=== PATIENT | female | born 1960 | race American Indian/Alaskan Native ===

== ENCOUNTER 2016-08-23 08:44 | Outpatient (CLI) | payer BC ==
[2016-08-23 10:48] LABS: Blood Urea Nitrogen 28 mg/dL (7-17)
[2016-08-23] MEDS ORDERED: NACL ONE (10:52)
--- NOTE | 2016-08-23 13:58 | Cat Scan Report ---
CT NECK WITH CONTRAST: HISTORY: Lymphocytosis. TECHNIQUE: Helical CT following IV contrast. Sagittal and coronal reformatted images. FINDINGS: There are a few scattered benign-appearing lymph nodes on both sides of the neck. The largest lymph nodes measure up to 1.3 cm in long axis in the jugular chains. No bulky adenopathy or necrotic lymph nodes. The parotid and submandibular glands are normal. The carotid sheaths are intact. The glottic structures are normal. The airway is patent. Strap musculature is unremarkable. Hyoid bone and thyroid cartilage are intact. IMPRESSION: Essentially unremarkable CT of the neck. A few scattered benign-appearing or reactive lymph nodes are noted in the jugular chains. No bulky adenopathy or mass.
--- NOTE | 2016-08-23 14:04 | Cat Scan Report ---
CT CHEST WITH CONTRAST: HISTORY: Lymphocytosis. TECHNIQUE: Helical CT following IV contrast. Sagittal and coronal reformatted images. FINDINGS: Heart size is normal. There is no evidence of adenopathy within the mediastinum. Pulmonary rosalind are free of any mass and the lungs are clear of infiltrates. The pleura is unremarkable. No masses involve the chest wall. There are scattered benign appearing lymph nodes in the mediastinum and bilateral axillary chains measuring up to 1.2 cm. No suspicious or bulky adenopathy. IMPRESSION: Unremarkable CT scan of the chest.
--- NOTE | 2016-08-23 14:07 | Cat Scan Report ---
CT SCAN OF THE ABDOMEN AND PELVIS WITH CONTRAST: HISTORY: Lymphocytosis. TECHNIQUE: Helical CT in 1.25mm intervals following IV contrast. Sagittal and coronal reconstructions. FINDINGS: The liver is normal in size and is without focal defect. No gallstones or biliary dilatation are noted. Normal pancreas. There is borderline to mild splenomegaly measuring 14.3 x 6.2 x 9.0 cm. No focal splenic lesion. The kidneys are normal in size and position with no evidence of hydronephrosis or mass. The adrenal glands are normal. There is no intestinal obstruction or ascites. Normal appendix. The abdominal aorta is normal. Hysterectomy changes are evident. I believe I see the ovaries which are unremarkable. There is no evidence of peritoneal air or fluid. There is no evidence of any abnormal masses or fluid collections within the pelvis. No adenopathy is identified. The bladder is normal. IMPRESSION: Borderline to mild splenomegaly. No pathologic adenopathy is appreciated. Otherwise, unremarkable exam of the abdomen and pelvis.
== END 2016-08-23 08:45 | disposition home or self-care (01) ==
LOC: CT 08:44
PROVIDERS: ATTEND Internal Medicine Hematology & Oncology
DX: C91.Z0 Other lymphoid leukemia not having achieved remission (principal); Z90.710 Acquired absence of both cervix and uterus
CPT/HCPCS: 36415; 70491; 71260; 74177; 82565; 84520; Q9967

== ENCOUNTER 2017-01-05 13:46 | Outpatient (CLI) | payer BC ==
[2017-01-05 14:09] LABS: Hematocrit 33.7 % (30.3-42.9); Hemoglobin 10.7 gm/dl (10.1-14.3); Mean Corpuscular HGB Conc 32 % (30-34); Mean Corpuscular Hemoglobin 28 pg (28-32); Mean Corpuscular Volume 86 fl (79-97); Platelet Count 252 K/mm3 (140-440); Red Cell Distribution Width 13.7 % (13.2-15.2)
[2017-01-05 14:15] LABS: White Blood Count 25.2 K/mm3 (4.5-11.0)
[2017-01-05 14:28] LABS: Alanine Aminotransferase 16 units/L (7-56); Albumin 4.5 g/dL (3.9-5); Albumin/Globulin Ratio 1.5 %; Alkaline Phosphatase 91 units/L (35-129); Anion Gap 18 mmol/L; BUN/Creatinine Ratio 32.85; Blood Urea Nitrogen 23 mg/dL (7-17); Calcium 9.5 mg/dL (8.4-10.2); Carbon Dioxide 25 mmol/L (22-30); Chloride 103.7 mmol/L (98-107); Cholesterol 186 mg/dL (50-199); Glucose 83 mg/dL (65-100); HDL Cholesterol 48 mg/dL (40-59); LDL Cholesterol,Direct 120 mg/dL (50-130); Sodium 143 mmol/L (137-145); Total Protein 7.5 g/dL (6.3-8.2); Triglycerides 92 mg/dL (2-149)
== END 2017-01-05 13:47 | disposition home or self-care (01) ==
LOC: LAB 13:46
PROVIDERS: ATTEND Internal Medicine
DX: I10 Essential (primary) hypertension (principal); D72.829 Elevated white blood cell count, unspecified; E78.00 Pure hypercholesterolemia, unspecified; D64.9 Anemia, unspecified
CPT/HCPCS: 36415; 80053; 80061; 85027

== ENCOUNTER 2017-02-21 11:39 | Outpatient (CLI) | payer BC ==
--- NOTE | 2017-02-21 14:36 | Mammography Report ---
BILATERAL MAMMOGRAM: FINDINGS: There are scattered fibroglandular densities (approximately 25%-50% glandular). No mass, distortion, suspicious calcification, or skin change is seen. Change compared to prior study in 2010. CAD was utilized. IMPRESSION: Negative mammogram. There is no mammographic evidence of malignancy. RECOMMENDATION: Follow-up per ACS guidelines. BI-RADS CATEGORY: 1 = Negative ACR BI-RADS MAMMOGRAPHIC CODES: 0 = Needs additional imaging evaluation; 1 = Negative; 2 = Benign; 3 = Probably benign; 4 = Suspicious; 5 = Malignant; 6 = Known biopsy-proven malignancy COMMENT: 1. Dense breast tissue, i.e., adenosis, fibrocystic changes, etc., may obscure an underlying neoplasm. 2. Approximately 10% of cancers are not detected with mammography. 3. A negative mammography report should not delay biopsy if a clinically suspicious mass is present. COMMENT: Patient follow-up letters are generated in [employer].
== END 2017-02-21 11:40 | disposition home or self-care (01) ==
LOC: MAMMO 11:39
PROVIDERS: ATTEND Internal Medicine
DX: Z12.31 Encounter for screening mammogram for malignant neoplasm of breast (principal)
CPT/HCPCS: 77067; G0202

== ENCOUNTER 2017-07-21 09:07 | Outpatient (CLI) | payer BC ==
[2017-07-21 09:19] LABS: Hematocrit 33.8 % (30.3-42.9); Hemoglobin 10.9 gm/dl (10.1-14.3); Mean Corpuscular HGB Conc 32 % (30-34); Mean Corpuscular Hemoglobin 28 pg (28-32); Mean Corpuscular Volume 87 fl (79-97); Platelet Count 251 K/mm3 (140-440); Red Cell Distribution Width 13.5 % (13.2-15.2)
[2017-07-21 09:42] LABS: Alanine Aminotransferase 24 units/L (7-56); BUN/Creatinine Ratio 23; Blood Urea Nitrogen 18 mg/dL (7-17); Chol/HDL Ratio 3.43 %; HDL Cholesterol 46 mg/dL (40-59); Hemolysis Index 3; LDL Cholesterol,Direct 100 mg/dL (50-130)
[2017-07-21 10:17] LABS: Basophils % (Manual) 0 % (0.0-1.8); Total Cells Counted 100
[2017-07-21 10:18] LABS: Anisocytosis 1+; Burr Cells Rare; Ovalocytes Few; Stomatocytes Rare
== END 2017-07-21 09:08 | disposition home or self-care (01) ==
LOC: LAB 09:07
PROVIDERS: ATTEND Internal Medicine
DX: I10 Essential (primary) hypertension (principal); E78.2 Mixed hyperlipidemia
CPT/HCPCS: 36415; 80053; 80061; 85007; 85025

== ENCOUNTER 2017-10-10 07:59 | Emergency (ER) | payer BC, OTHER ==
[2017-10-10 08:06] VITALS: BP 148/57
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
== END 2017-10-10 09:27 | disposition home or self-care (01) ==
LOC: ED 07:59
DX: S41.051A Open bite of right shoulder, initial encounter (principal); Z88.8 Allergy status to other drugs, medicaments and biological substances; W50.3XXA Accidental bite by another person, initial encounter; Y93.89 Activity, other specified; Y92.89 Other specified places as the place of occurrence of the external cause; Y99.8 Other external cause status
CPT/HCPCS: 99282

== ENCOUNTER 2018-06-12 08:09 | Outpatient (CLI) | payer BC ==
[2018-06-12 09:26] LABS: Hematocrit 33.1 % (30.3-42.9); Hemoglobin 10.4 gm/dl (10.1-14.3); Mean Corpuscular HGB Conc 31 % (30-34); Mean Corpuscular Volume 89 fl (79-97); Platelet Count 247 K/mm3 (140-440); Red Blood Count 3.74 M/mm3 (3.65-5.03); Red Cell Distribution Width 13.9 % (13.2-15.2)
[2018-06-12 12:02] LABS: Eosinophils % (Manual) 0 % (0.0-4.3); Platelet Estimate Consistent w Auto; RBC Morphology Normal; Total Cells Counted 100
--- NOTE | 2018-06-12 12:24 | Ultrasound Report ---
ULTRASOUND ABDOMEN COMPLETE: TECHNIQUE: Transabdominal ultrasound with color Doppler interrogation. HISTORY: Chronic lymphoma leukemia. COMPARISON: CT abdomen pelvis with contrast dated 08/23/16. FINDINGS: LIVER: Within normal limits. No focal liver mass. BILIARY SYSTEM: Trace sludge is identified in the gallbladder. No shadowing gallstones, abnormal dilatation or wall thickening. The CBD measures 3.6 mm. PANCREAS: Partially obscured. No gross abnormality. SPLEEN: Borderline to mild splenomegaly is identified measuring 13.9 x 4.9 x 4.6 cm. No focal splenic lesion is detected. KIDNEYS: Normal. AORTA/IVC: Normal. ASCITES: None. IMPRESSION: Trace sludge in the gallbladder. Borderline to mild splenomegaly. No visceral mass, adenopathy or fluid is identified.
--- NOTE | 2018-06-12 12:42 | Mammography Report ---
BILATERAL DIGITAL SCREENING MAMMOGRAM with CAD: 06/12/18 08:09:00 CLINICAL: Routine screening. COMPARISON:02/21/17 FINDINGS: There are scattered areas of fibroglandular density.Stable right calcifications with benign morphology. No mass, architectural distortion or suspicious calcifications. IMPRESSION: No mammographic evidence of malignancy. BI-RADS CATEGORY: 2 -- Benign RECOMMENDATION: Routine mammographic screening in one year. COMMENT: Patient follow-up letters are generated by our [employer] application.
== END 2018-06-12 08:10 | disposition home or self-care (01) ==
LOC: EDBD → US 08:09
PROVIDERS: ATTEND Internal Medicine Hematology & Oncology
DX: Z12.31 Encounter for screening mammogram for malignant neoplasm of breast (principal); C91.10 Chronic lymphocytic leukemia of B-cell type not having achieved remission; I10 Essential (primary) hypertension; E78.00 Pure hypercholesterolemia, unspecified; M19.90 Unspecified osteoarthritis, unspecified site; Z90.710 Acquired absence of both cervix and uterus
CPT/HCPCS: 36415; 76700; 77067; 85007; 85025; 88184; 88185

== ENCOUNTER 2018-07-02 09:22 | Outpatient (CLI) | payer BC ==
--- NOTE | 2018-07-02 10:44 | XRay Report ---
LEFT KNEE RADIOGRAPHS INDICATION: Left knee pain. COMPARISON: 03/18/2014. FINDINGS: AP, lateral and oblique left knee radiographs demonstrate interval knee replacement with intact articulation. No evidence of loosening. No large suprapatellar effusion. Possible osteopenia. CONCLUSION: Interval left knee replacement since March 2014 without acute radiographic abnormality, as described. Please correlate. Thank you for the opportunity to participate in this patient's care.
== END 2018-07-02 09:23 | disposition home or self-care (01) ==
LOC: EDBD → XRAY 09:22
PROVIDERS: ATTEND Orthopaedic Surgery
DX: M25.562 Pain in left knee (principal); E78.00 Pure hypercholesterolemia, unspecified; I10 Essential (primary) hypertension; M19.90 Unspecified osteoarthritis, unspecified site; Z90.710 Acquired absence of both cervix and uterus; Z96.652 Presence of left artificial knee joint

== ENCOUNTER 2018-07-23 08:05 | Outpatient (CLI) | payer BC ==
--- NOTE | 2018-07-23 13:33 | Nuclear Medicine Report ---
NUCLEAR MEDICINE BONE SCAN INFECTION 3 PHASE HISTORY: Left knee pain since left knee replacement in 11/19. COMPARISON: Left knee films dated 07/02/18. FINDINGS: 25 mCi of technetium 99m was administered intravenously. The perfusion images of both knees demonstrates symmetric perfusion to both knee regions. No focal hyperemia is appreciated. The blood pool images demonstrate mild retention of the radiotracer in the left knee particularly surrounding the tibial component. The delayed images demonstrate increased uptake of the radiotracer surrounding the left knee prosthesis, again, particularly the tibial component. There is also moderate degenerative uptake in the right knee and right ankle. IMPRESSION: There is increased accumulation of the radiotracer surrounding the tibial component of the left knee prosthesis which is concerning for loosening or traumatic injury. No evidence for infection.
== END 2018-07-23 08:06 | disposition home or self-care (01) ==
LOC: NM 08:05
PROVIDERS: ATTEND Orthopaedic Surgery
DX: M25.562 Pain in left knee (principal); E78.00 Pure hypercholesterolemia, unspecified; I10 Essential (primary) hypertension; M19.90 Unspecified osteoarthritis, unspecified site; Z96.652 Presence of left artificial knee joint; Z90.710 Acquired absence of both cervix and uterus
CPT/HCPCS: 78315; A9503

== ENCOUNTER 2018-08-15 13:06 | Outpatient (CLI) | payer BC ==
--- NOTE | 2018-08-15 13:40 | XRay Report ---
RIGHT ANKLE, 3 views: History: right ankle pain. Borderline bone mineralization. Moderate osteoarthritic changes are identified at the tibiotalar joint and subtalar joint and mid foot. There is no evidence for fracture or suspicious bone lesion. Moderate to large plantar spur is identified. There is mild diffuse soft tissue swelling or edema. IMPRESSION: Moderate osteoarthritic changes. No acute process noted.
== END 2018-08-15 13:07 | disposition home or self-care (01) ==
LOC: XRAY 13:06
PROVIDERS: ATTEND Orthopaedic Surgery
DX: M19.071 Primary osteoarthritis, right ankle and foot (principal); M77.8 Other enthesopathies, not elsewhere classified; M19.90 Unspecified osteoarthritis, unspecified site; I10 Essential (primary) hypertension; Z86.2 Personal history of diseases of the blood and blood-forming organs and certain disorders involving the immune mechanism; Z90.710 Acquired absence of both cervix and uterus

== ENCOUNTER 2018-09-27 07:22 | Inpatient (IN) | payer BC ==
[2018-09-25 09:36] LABS: Hematocrit 35.1 % (30.3-42.9); Hemoglobin 10.9 gm/dl (10.1-14.3); Mean Corpuscular HGB Conc 31 % (30-34); Mean Corpuscular Volume 89 fl (79-97); Platelet Count 231 K/mm3 (140-440); Red Blood Count 3.93 M/mm3 (3.65-5.03); Red Cell Distribution Width 13.8 % (13.2-15.2)
--- NOTE | 2018-09-25 09:58 | Anesthesia Consultation ---
Anesthesia Consult and Med Hx Date of service: 09/27/18 - Airway Anesthetic Teeth Evaluation: Poor, Chipped ROM Head & Neck: Adequate Mental/Hyoid Distance: Adequate Mallampati Class: Class II Intubation Access Assessment: Probably Good - Pre-Operative Health Status ASA Pre-Surgery Classification: ASA3 Proposed Anesthetic Plan: General (SAB; GA backup if needed), Spinal Nerve Block: Adductor Canal - Pulmonary Hx Smoking: No Hx Sleep Apnea: No (CHARO PRE SCREEN HIGH RISK.) - Cardiovascular System Hx Hypertension: Yes (X 5 YRS. Occasionally HYPOtensive so takes meds accordingly) - Central Nervous System Hx Psychiatric Problems: No - Hematic Hx Anemia: Yes - Other Systems Hx Cancer: Yes (CLL)
[2018-09-25 10:03] LABS: Alanine Aminotransferase 28 units/L (7-56); Albumin 4.7 g/dL (3.9-5); BUN/Creatinine Ratio 28; Blood Urea Nitrogen 25 mg/dL (7-17); Calcium 9.8 mg/dL (8.4-10.2); Hemolysis Index 12
[2018-09-25 13:00] LABS: Basophils % (Manual) 0 % (0.0-1.8); Eosinophils % (Manual) 0 % (0.0-4.3); Total Cells Counted 100
[2018-09-25 13:03] LABS: Anisocytosis 1+; Platelet Estimate Consistent w Auto
[~2018-09-27 07:22] MED LIST: ANCEF/STERILE WATER 2 GM/20 ML IV NR; MARCAINE 0.5% INFILTRATI ONE; MORPHINE IM ONE; NACL 0.9% 250ML IV ONE; TORADOL IM ONE
[2018-09-27] MEDS ORDERED: NEURONTIN PO NR (07:29)
[2018-09-27] MEDS ORDERED: DECADRON IV NR (07:30)
[2018-09-27] MEDS ORDERED: DECADRON ONE (07:36)
[2018-09-27] MEDS ORDERED: ZOFRAN ONE (07:36)
[2018-09-27] MEDS ORDERED: XYLOCAINE MPF 2% ONE (07:36)
[2018-09-27] MEDS ORDERED: DIPRIVAN 10 MG/ML IV ONE (07:37)
[2018-09-27] MEDS ORDERED: DILAUDID ONE ×2 (07:37→12:35)
[2018-09-27] MEDS ORDERED: TORADOL ONE ×2 (07:49→12:38)
[2018-09-27] MEDS ORDERED: MARCAINE 0.5% INFILTRATI ONE ×3 (07:49→11:05)
[2018-09-27] MEDS ORDERED: TRANEXAMIC ACID ONE (07:49)
[2018-09-27] MEDS ORDERED: NACL 0.9% 250ML 250 ML ONE (07:50)
[2018-09-27] MEDS ORDERED: MORPHINE ONE (07:50)
[2018-09-27] MEDS ORDERED: NACL 0.9% 100 ML ONE (07:50)
[2018-09-27] MEDS ORDERED: LACTATED RINGERS 1,000 ML ONE (07:54)
[2018-09-27] MEDS ORDERED: MARCAINE-EPI 0.5%-1:200,000 INFILTRATI ONE (08:00)
[2018-09-27] MEDS ORDERED: VERSED IV NR (08:00)
[2018-09-27] MEDS ORDERED: PEPCID ONE (08:03)
[2018-09-27] MEDS ORDERED: SUBLIMAZE ONE (08:35)
[2018-09-27] MEDS ORDERED: VERSED ONE (08:35)
[2018-09-27] MEDS ORDERED: TRANEXAMIC ACID IV ONE (08:54)
[2018-09-27] MEDS ORDERED: NACL 0.9% 250ML IV ONE (11:05)
[2018-09-27] MEDS ORDERED: MORPHINE IM ONE (11:05)
[2018-09-27] MEDS ORDERED: TORADOL IM ONE (11:05)
[2018-09-27] MEDS ORDERED: ZOFRAN IV PRN (11:21)
--- NOTE | 2018-09-27 11:28 | Procedure Note ---
Date of procedure: 09/27/18 Pre-op diagnosis: aseptic loosening left tibial component status post total knee replacement Post-op diagnosis: same Procedure: Revision left total knee replacement Procedure The patient was brought to the OR after being given a femoral nerve block in preop holding Patient was placed onto the OR table in the supine position following induction with Mac anesthesia the patient's left lower extremity was prepped and draped in the usual sterile manner. A timeout procedure was done to identify the patient and the correct operative site. Leg was exsanguinated followed by inflation of the pneumatic tourniquet to 300 mmHg. Utilizing the previous incision which was midline this and incisions were taken down through skin and subcutaneous the superior and inferior portions of the previous scar was lengthened to expose more soft tissue after incising the skin and subcutaneous tissues the quadriceps tendon patella and patellar tendons were identified using a medial parapatellar incision the the knee was then brought into flexion which exposed the left knee upon visual inspection patient was noted to have abundant scar tissue which was carefully debrided The tibial implant was seen and appeared to be somewhat loose using a combination of osteotomes the bony overgrowth were removed The patella osteotomy the polyethylene insert was removed and the knee was then placed in 90 of flexion using retractors posteriorly we were able to slowly remove the tibial implant which again appeared loose but with no outward evidence of infection the femoral component was also evaluated and appeared to be in a stable firm condition after removal of the tibial component and intramedullary isabel was inserted into the proximal tibia this was then reamed to a 19 mm diameter next the proximal tibial resection guide was placed and approximately 7 or 8 mm of proximal tibia was resected off of the lateral tibial plateau with the intramedullary isabel in place a 71 mm tibial tray with medial and lateral buildup was used to size the flexion and extension gaps 15 mm medial and lateral buildup along with a 18 mm polyethylene insert was chosen systems gave good stability in both flexion and extension and allowed for full range of motion The trial components were removed the wound was then copiously irrigated using pulse lavage next the final components were assembled and was inserted using E cement technique beginning with the tibial cut tibial tray which measured 80 mm length by 19 mm in diameter with a 71 mm tibial tray along with again a 1515 mm medial and lateral as well as a 18 mm polyethylene insert following hardening of cement the knee was taken through a range of motion and was found to be stable next the soft tissues beginning with the medial patellar retinaculum was repaired followed by closure of the deep subcutaneous and superficial skin was closed with a zip line suture device pressure dressings were applied patient tolerated procedure and complications she was sent to postanesthesia recovery in stable condition Anesthesia: MAC, regional Surgeon: CECILIA CUMMINGS [employer] Specialist: ALICE MILLER Estimated blood loss: minimal Pathology: list (wound culture left knee) Condition: stable Disposition: PACU
[2018-09-27] MEDS ORDERED: SODIUM CHLORIDE FLUSH SYRINGE 10 ML IV NR (12:00)
[2018-09-27] MEDS ORDERED: TORADOL IV ONE (12:38)
[2018-09-27] MEDS ORDERED: DILAUDID IV PRN (12:39)
[2018-09-27] MEDS: ANCEF/NS 1 GM/50 ML 1 GM/50 ML BAG IV SCH (21:00)
[2018-09-27] MEDS: PERCOCET 5/325 PO PRN (21:58)
[2018-09-28] MEDS: MORPHINE IV PRN ×3 (02:45→16:48)
[2018-09-28] MEDS: ANCEF/NS 1 GM/50 ML 1 GM/50 ML BAG IV SCH (02:47)
[2018-09-28 06:34] LABS: Hemoglobin 8.8 gm/dl (10.1-14.3)
[2018-09-28] MEDS: PERCOCET 5/325 PO PRN ×3 (06:51→21:01)
[2018-09-28] MEDS: LOVENOX SUB-Q SCH (09:52)
--- NOTE | 2018-09-28 16:17 | Progress Note ---
Assessment and Plan s/p revision left total knee replacement doing ok continue PT and observation Subjective Date of service: 09/28/18 Interval history: c/o right hand numbness, otherwise ok Objective Vital signs: Vital Signs - 12hr 09/28/18 09/28/18 09/28/18 04:36 04:40 08:17 Temperature 98.1 F 99.7 F H Pulse Rate 61 66 75 Respiratory 18 18 Rate Blood Pressure 108/60 98/46 Blood Pressure 108/60 [Left] O2 Sat by Pulse 100 100 97 Oximetry 09/28/18 09/28/18 09/28/18 08:18 08:36 12:13 Temperature Pulse Rate 77 73 Respiratory Rate Blood Pressure Blood Pressure [Left] O2 Sat by Pulse 97 98 100 Oximetry 09/28/18 12:15 Temperature 99.8 F H Pulse Rate 74 Respiratory 18 Rate Blood Pressure Blood Pressure 100/48 [Left] O2 Sat by Pulse 2 L Oximetry Narrative Exam: left knee - post op dressing removed and wound inspected, no redness/erythema noted, moderate bloody drainage, compartment soft, negative Jose M's, good capillary refill - Labs CBC & BMP: 09/28/18 06:24 09/25/18 09:00 Labs: Abnormal lab results 09/27/18 09/28/18 Range/Units 21:58 06:24 Hgb 8.8 L (10.1-14.3) gm/dl Hct 28.0 L D (30.3-42.9) % POC Glucose 161 H (70-105)
--- NOTE | 2018-09-28 22:35 | Consultation ---
History of Present Illness - Reason for Consult Consult date: 09/28/18 medical management Requesting physician: CECILIA CUMMINGS - History of Present Illness s/p revision left total knee replacement. Was asked to see the patient in consultation for right hand numbness. Right hand numbness has been going off and on for the last 1 week. No weakness in the hand. Full range of motion. No other medical problems. Past History Past Medical History: arthritis, hypertension, hyperlipidemia Past Surgical History: Other (left knee surgery) Social history: no significant social history, full code Family history: no significant family history Medications and Allergies Allergies Allergy/AdvReac Type Severity Reaction Status Date / Time Tetanus Vaccines and Toxoid Allergy ANEMIA Verified 11/22/16 10:13 [Tetanus Vaccines & Toxoid] Home Medications Medication Instructions Recorded Confirmed Last Taken Type Aspirin [Adult Low Dose Aspirin EC] 81 mg PO DAILY 07/01/16 09/19/18 11/21/16 History Atenolol/Chlorthalidone [Tenoretic 1 tab PO QDAY 07/01/16 09/27/18 09/26/18 History 50-25] AtorvaSTATin [Lipitor] 20 mg PO DAILY 07/01/16 09/27/18 09/26/18 History Ibuprofen [Motrin 800 MG tab] 800 mg PO PRN PRN 07/01/16 09/19/18 11/20/16 History Active Meds: Active Medications Enoxaparin Sodium (Lovenox) 40 mg SUB-Q QDAY KING Last Admin: 09/28/18 09:52 Dose: 40 mg Documented by: Hydromorphone HCl (Dilaudid) 0.5 mg IV Q10MIN PRN PRN Reason: Pain , Severe (7-10) Ibuprofen (Motrin) 600 mg PO Q6H PRN PRN Reason: Pain, Mild (1-3) Morphine Sulfate (Morphine) 4 mg IV Q4H PRN PRN Reason: Pain , Severe (7-10) Last Admin: 09/28/18 16:48 Dose: 4 mg Documented by: Ondansetron HCl (Zofran) 4 mg IV Q8H PRN PRN Reason: Nausea And Vomiting Oxycodone/Acetaminophen (Percocet 5/325) 1 tab PO Q6H PRN PRN Reason: Pain, Moderate (4-6) Last Admin: 09/28/18 21:01 Dose: 1 tab Documented by: Review of Systems All systems: negative Neurological: parathesias (right upper extremity) Exam - Constitutional Vitals: Temp Pulse Resp BP Pulse Ox 99.2 F 85 18 111/54 100 09/28/18 20:06 09/28/18 20:06 09/28/18 22:01 09/28/18 20:06 09/28/18 20:06 General appearance: Present: no acute distress, well-nourished - EENT Eyes: Present: PERRL ENT: hearing intact, clear oral mucosa - Neck Neck: Present: supple, normal ROM - Respiratory Respiratory effort: normal Respiratory: bilateral: CTA - Cardiovascular Heart rate: 70 Rhythm: regular Heart Sounds: Present: S1 & S2. Absent: rub, click - Extremities Extremities: no ischemia, pulses intact, pulses symmetrical, No edema Peripheral Pulses: within normal limits - Abdominal General gastrointestinal: Present: soft, non-tender, non-distended, normal bowel sounds Female genitourinary: Present: normal - Rectal Rectal Exam: deferred - Integumentary Integumentary: Present: clear, warm, dry - Musculoskeletal Musculoskeletal: gait normal, strength equal bilaterally - Psychiatric Psychiatric: appropriate mood/affect, intact judgment & insight - Neurologic Neurologic: CNII-XII intact, moves all extremities - Allied Health Allied health notes reviewed: nursing, case management Results - Labs CBC & Chem 7: 09/28/18 06:24 09/25/18 09:00 Labs: Abnormal lab results 09/28/18 Range/Units 06:24 Hgb 8.8 L (10.1-14.3) gm/dl Hct 28.0 L D (30.3-42.9) % Assessment and Plan - Patient Problems (1) History of total left knee replacement Current Visit: No Status: Acute Plan to address problem: Revision of total knee replacement-left Postop doing well (2) Numbness of right hand Current Visit: Yes Status: Acute Plan to address problem: Probably secondary to cervical degenerative joint disease We'll get CT of the C-spine Symptomatic treatment (3) Hypertension Current Visit: Yes Status: Chronic Qualifiers: Hypertension type: essential hypertension Qualified Code(s): I10 - Essential (primary) hypertension Plan to address problem: Continue antihypertensives (4) Hyperlipidemia Current Visit: Yes Status: Chronic Qualifiers: Hyperlipidemia type: unspecified Qualified Code(s): E78.5 - Hyperlipidemia, unspecified Plan to address problem: Continue statins (5) DVT prophylaxis Current Visit: Yes Status: Acute Plan to address problem: On SCDs and GI prophylaxis
[2018-09-29] MEDS: MORPHINE IV PRN ×3 (00:55→15:20)
[2018-09-29] MEDS: PERCOCET 5/325 PO PRN ×2 (04:25→10:30)
[2018-09-29] MEDS: LOVENOX SUB-Q SCH ×2 (08:37→10:00)
[2018-09-29] MEDS ORDERED: DULCOLAX PR ONE ×2 (09:28→15:00)
[2018-09-29] MEDS ORDERED: NON-FORMULARY (Atenolol/Chlorthalidone [Tenoretic 50-25] 1 TAB) PO SCH (10:00)
[2018-09-29] MEDS: HALFPRIN EC PO SCH (11:20)
--- NOTE | 2018-09-29 12:37 | Progress Note ---
Assessment and Plan Assessment and plan: Patient is a 57 yo woman with a history of OA, hypertension, dyslipidemia, anemia and CML followed by Dr. Marinelli who presented to [facility] surgical center for Left knee pain requiring TKR by Dr. Rodney on 09/27/18. Hospitalist were consulted on 09/28/18 to evaluated right hand numbness, tingling on all right f ingertips that developed after surgery. She is actually a patient of Dr. Ramirez, who I called. He provided the history of CML and Dr. Marinelli. He will take over care tomorrow, Monday. I have informed him take patient spiked a fever of 100.8 today and I am ordering blood cultures. -Left knee pains s/p Left TKR on 09/27/18: Dr. Rodney is following -Right finger paresthesia: CT neck ordered yesterday and still pending -Elevated temperature: follow blood culture, ua, pCXR -Drop in HCT, acute on chronic anemia: repeat CBC -Suspected history of CML with wBC in the 50s: consult Dr. Marinelli. -DVT prophylaxis per Dr. Rodney Follow up CXR, blood culture, ua, cbc, CT neck History Interval history: Patient was seen and examined. Follow-up on current diagnosis or right fingertip tingling. Overnight uneventful. Patient denies any chest pain, shortness breath, nausea/vomiting or severe headaches. Imaging, nursing note, chart, labs and old chart reviewed. Discussed with patient. Hospitalist Physical - Physical exam Narrative exam: Gen: WDWN, NAD, Awake, Alert, Orientated HEENT: NCAT, EOMI, PERRL, OP Clear Neck: supple, no adenopathy, no thyromegaly, no JVD CVS/Heart: RRR, normal S1S2, pulses present bilaterally Chest/Lungs: CTA B, Symmetrical chest expansion, good air entry bilaterally GI/Abdomen: soft, NTND, good bowel sounds, no guarding or rebound /Bladder: no suprapubic tenderness, no CVA or paraspinal tenderness Extermity/Skin: no c/c/e, no obvious rash MSK: FROM x 3, lrom left knee Neuro: CN 2-12 grossly intact, no new focal deficits, no right hand motor deficits Psych: calm - Constitutional Vitals: Temp Pulse Resp BP Pulse Ox 100.8 F H 94 H 18 102/48 96 09/29/18 08:18 09/29/18 08:18 09/29/18 10:31 09/29/18 08:18 09/29/18 10:31 General appearance: Present: no acute distress, well-nourished Results - Labs CBC & Chem 7: 09/28/18 06:24 09/25/18 09:00 Labs: Laboratory Last Values WBC 59.7 K/mm3 (4.5-11.0) H* 09/25/18 09:00 RBC 3.93 M/mm3 (3.65-5.03) 09/25/18 09:00 Hgb 8.8 gm/dl (10.1-14.3) L 09/28/18 06:24 Hct 28.0 % (30.3-42.9) L D 09/28/18 06:24 MCV 89 fl (79-97) 09/25/18 09:00 MCH 28 pg (28-32) 09/25/18 09:00 MCHC 31 % (30-34) 09/25/18 09:00 RDW 13.8 % (13.2-15.2) 09/25/18 09:00 Plt Count 231 K/mm3 (140-440) 09/25/18 09:00 Add Manual Diff 09/25/18 09:00 Total Counted 100 09/25/18 09:00 Seg Neuts % (Manual) 8.0 % (40.0-70.0) L 09/25/18 09:00 Band Neutrophils % 0 % 09/25/18 09:00 Lymphocytes % (Manual) 91.0 % (13.4-35.0) H 09/25/18 09:00 Reactive Lymphs % (Man) 0 % 09/25/18 09:00 Monocytes % (Manual) 1.0 % (0.0-7.3) 09/25/18 09:00 Eosinophils % (Manual) 0 % (0.0-4.3) 09/25/18 09:00 Basophils % (Manual) 0 % (0.0-1.8) 09/25/18 09:00 Metamyelocytes % 0 % 09/25/18 09:00 Myelocytes % 0 % 09/25/18 09:00 Promyelocytes % 0 % 09/25/18 09:00 Blast Cells % 0 % 09/25/18 09:00 Nucleated RBC % Not Reportable 09/25/18 09:00 Seg Neutrophils # Man 4.8 K/mm3 (1.8-7.7) 09/25/18 09:00 Band Neutrophils # 0.0 K/mm3 09/25/18 09:00 Lymphocytes # (Manual) 54.3 K/mm3 (1.2-5.4) H 09/25/18 09:00 Abs React Lymphs (Man) 0.0 K/mm3 09/25/18 09:00 Monocytes # (Manual) 0.6 K/mm3 (0.0-0.8) 09/25/18 09:00 Eosinophils # (Manual) 0.0 K/mm3 (0.0-0.4) 09/25/18 09:00 Basophils # (Manual) 0.0 K/mm3 (0.0-0.1) 09/25/18 09:00 Metamyelocytes # 0.0 K/mm3 09/25/18 09:00 Myelocytes # 0.0 K/mm3 09/25/18 09:00 Promyelocytes # 0.0 K/mm3 09/25/18 09:00 Blast Cells # 0.0 K/mm3 09/25/18 09:00 Pathologist Review 09/25/18 09:00 WBC Morphology Not Reportable 09/25/18 09:00 Hypersegmented Neuts Not Reportable 09/25/18 09:00 Hyposegmented Neuts Not Reportable 09/25/18 09:00 Hypogranular Neuts Not Reportable 09/25/18 09:00 Smudge Cells Not Reportable 09/25/18 09:00 Toxic Granulation Not Reportable 09/25/18 09:00 Toxic Vacuolation Not Reportable 09/25/18 09:00 Dohle Bodies Not Reportable 09/25/18 09:00 Pelger-Huet Anomaly Not Reportable 09/25/18 09:00 Bebe Rods Not Reportable 09/25/18 09:00 Platelet Estimate Consistent w auto 09/25/18 09:00 Clumped Platelets Not Reportable 09/25/18 09:00 Plt Clumps, EDTA Not Reportable 09/25/18 09:00 Large Platelets Not Reportable 09/25/18 09:00 Giant Platelets Not Reportable 09/25/18 09:00 Platelet Satelliting Not Reportable 09/25/18 09:00 Plt Morphology Comment Not Reportable 09/25/18 09:00 RBC Morphology Not Reportable 09/25/18 09:00 Dimorphic RBCs Not Reportable 09/25/18 09:00 Polychromasia Not Reportable 09/25/18 09:00 Hypochromasia Not Reportable 09/25/18 09:00 Poikilocytosis Not Reportable 09/25/18 09:00 Anisocytosis 1+ 09/25/18 09:00 Microcytosis Not Reportable 09/25/18 09:00 Macrocytosis Not Reportable 09/25/18 09:00 Spherocytes Not Reportable 09/25/18 09:00 Pappenheimer Bodies Not Reportable 09/25/18 09:00 Sickle Cells Not Reportable 09/25/18 09:00 Target Cells Not Reportable 09/25/18 09:00 Tear Drop Cells Not Reportable 09/25/18 09:00 Ovalocytes Not Reportable 09/25/18 09:00 Helmet Cells Not Reportable 09/25/18 09:00 [place] Bodies Not Reportable 09/25/18 09:00 [place] Rings Not Reportable 09/25/18 09:00 [place] Cells Not Reportable 09/25/18 09:00 Bite Cells Not Reportable 09/25/18 09:00 Crenated Cell Not Reportable 09/25/18 09:00 Elliptocytes Not Reportable 09/25/18 09:00 Acanthocytes (Spur) Not Reportable 09/25/18 09:00 Rouleaux Not Reportable 09/25/18 09:00 Hemoglobin C Crystals Not Reportable 09/25/18 09:00 Schistocytes Not Reportable 09/25/18 09:00 Malaria parasites Not Reportable 09/25/18 09:00 [place] Bodies Not Reportable 09/25/18 09:00 Hem Pathologist Commnt Sent to pathology 09/25/18 09:00 Sodium 142 mmol/L (137-145) 09/25/18 09:00 Potassium 3.9 mmol/L (3.6-5.0) 09/25/18 09:00 Chloride 101.3 mmol/L (98-107) 09/25/18 09:00 Carbon Dioxide 24 mmol/L (22-30) 09/25/18 09:00 Anion Gap 21 mmol/L 09/25/18 09:00 BUN 25 mg/dL (7-17) H 09/25/18 09:00 Creatinine 0.9 mg/dL (0.7-1.2) 09/25/18 09:00 Estimated GFR > 60 ml/min 09/25/18 09:00 BUN/Creatinine Ratio 28 % 09/25/18 09:00 Glucose 98 mg/dL (65-100) 09/25/18 09:00 POC Glucose 161 (70-105) H 09/27/18 21:58 Calcium 9.8 mg/dL (8.4-10.2) 09/25/18 09:00 Total Bilirubin 0.40 mg/dL (0.1-1.2) 09/25/18 09:00 AST 21 units/L (5-40) 09/25/18 09:00 ALT 28 units/L (7-56) 09/25/18 09:00 Alkaline Phosphatase 100 units/L (35-129) 09/25/18 09:00 Total Protein 7.8 g/dL (6.3-8.2) 09/25/18 09:00 Albumin 4.7 g/dL (3.9-5) 09/25/18 09:00 Albumin/Globulin Ratio 1.5 % 09/25/18 09:00 Active Medications - Current Medications Current Medications: Generic Name Dose Route Start Last Admin Trade Name Freq PRN Reason Stop Dose Admin Acetaminophen 650 mg 09/29/18 12:24 Tylenol PO Q6H PRN Non Cardiac Pain or Temp>100.5 Aspirin 81 mg 09/29/18 10:00 Halfprin Ec PO DAILY [facility] Atenolol 50 mg 09/29/18 10:00 Tenormin PO QDAY [facility] Atorvastatin Calcium 20 mg 09/29/18 10:00 Lipitor PO DAILY [facility] Chlorthalidone 25 mg 09/29/18 10:00 Thalitone PO QDAY [facility] Enoxaparin Sodium 40 mg 09/28/18 10:00 09/29/18 08:37 Lovenox SUB-Q 40 mg QDAY [facility] Administration Hydromorphone HCl 0.5 mg 09/27/18 12:39 Dilaudid IV Q10MIN PRN Pain , Severe (7-10) Ibuprofen 600 mg 09/27/18 11:21 Motrin PO Q6H PRN Pain, Mild (1-3) Morphine Sulfate 4 mg 09/27/18 11:21 09/29/18 07:37 Morphine IV 4 mg Q4H PRN Administration Pain , Severe (7-10) Ondansetron HCl 4 mg 09/27/18 11:21 Zofran IV Q8H PRN Nausea And Vomiting Oxycodone/Acetaminophen 1 tab 09/27/18 11:21 09/29/18 04:25 Percocet 5/325 PO 1 tab Q6H PRN Administration Pain, Moderate (4-6)
[2018-09-29 13:22] LABS: Hematocrit 29.7 % (30.3-42.9); Hemoglobin 9.6 gm/dl (10.1-14.3); Mean Corpuscular HGB Conc 32 % (30-34); Mean Corpuscular Volume 89 fl (79-97); Platelet Count 223 K/mm3 (140-440); Red Blood Count 3.33 M/mm3 (3.65-5.03); Red Cell Distribution Width 13.4 % (13.2-15.2)
--- NOTE | 2018-09-29 13:29 | Cat Scan Report ---
PROCEDURE: CT CERVICAL SPINE WO CON HISTORY: right hand numbness FINDINGS: Unenhanced CT of the cervical spine was performed and data was reformatted into sagittal an d coronal planes. These images demonstrate no fracture or malalignment of the cervical spine. The C1-C2 articulation is normally aligned. At C2-C3 there are no posterior disc abnormalities. There is no evidence of canal stenosis or signifi cant neural foraminal narrowing. At C3-C4 there are no posterior disc abnormalities. There is no evidence of canal stenosis or nerve r oot impingement. At C4-C5 there is a small posterior disc bulge. There is endplate remodeling which is primarily anter ior. There is no evidence of canal stenosis or nerve root impingement. At C5-C6 there is endplate remodeling which is primarily anterior. There is no evidence of canal sten osis or nerve root impingement. At C6-C7 there is endplate remodeling which again is primarily anterior. There is no evidence of ritesh l stenosis or significant neural foraminal narrowing. At C7-T1 there are no posterior disc abnormalities. There is loss of normal cervical lordosis which may be due to pain, muscle spasm or patient positioni ng for the examination The pulmonary apices appear clear. IMPRESSION: No fracture is seen in the cervical spine Endplate remodeling at C4-C5, C5-C6 and C6-C7 No evidence of canal stenosis or nerve root impingement This document is electronically signed by Alexandro Bermudez MD., September 29 2018 01:27:46 PM ET
--- NOTE | 2018-09-29 14:46 | XRay Report ---
PROCEDURE: XR CHEST 1V AP TECHNIQUE: Chest radiograph, AP view. HISTORY: fever COMPARISONS: None currently available. FINDINGS: Cardiac silhouette is within normal limits. There is no effusion. There is no pneumothorax. There is no consolidation. Prominent bilateral centra l pulmonary markings. Subtle perihilar airspace opacities. There are no suspicious osseous lesions. IMPRESSION: * Pulmonary findings may represent pneumonia (possibly viral), bronchitis, interstitial pneumonitis, or mild pulmonary vascular congestion. This document is electronically signed by Eliseo Trevino MD., September 29 2018 02:44:33 PM ET
[2018-09-29 16:12] LABS: Color,Urine Yellow (Yellow)
[2018-09-29 16:13] LABS: Bilirubin,Urine NEG (Negative); Blood,Urine SM (Negative); Protein,Urine <15 mg/dL mg/dL (Negative); Urobilinogen,Urine < 2.0 mg/dL (<2.0)
[2018-09-29] MEDS: TYLENOL PO PRN ×2 (16:48→22:04)
[2018-09-29] MEDS: TENORMIN PO SCH (16:50)
[2018-09-29] MEDS: THALITONE PO SCH (16:50)
--- NOTE | 2018-09-29 18:22 | Progress Note ---
Assessment and Plan s/p left revision TKR doing ok continue PT and observation Subjective Date of service: 09/29/18 Interval history: no c/o's noted, had 2 sessions of PT today...looks tired resting in bed Objective Vital signs: Vital Signs - 12hr 09/29/18 09/29/18 09/29/18 07:00 07:37 08:18 Temperature 100.8 F H Pulse Rate 94 H Respiratory 20 18 18 Rate Blood Pressure 102/48 O2 Sat by Pulse 96 Oximetry 09/29/18 09/29/18 09/29/18 10:31 12:02 16:30 Temperature 99.0 F 100.5 F H Pulse Rate 85 88 Respiratory 18 18 18 Rate Blood Pressure 108/55 113/46 O2 Sat by Pulse 96 97 96 Oximetry Narrative Exam: left knee - post op dressing intact no recent dc noted...Jose M's neg - Labs CBC & BMP: 09/29/18 12:55 09/25/18 09:00 Labs: Abnormal lab results 09/29/18 Range/Units 12:55 WBC 51.4 H* (4.5-11.0) K/mm3 RBC 3.33 L (3.65-5.03) M/mm3 Hgb 9.6 L (10.1-14.3) gm/dl Hct 29.7 L (30.3-42.9) %
--- NOTE | 2018-09-29 21:47 | XRay Report ---
PROCEDURE: XR KNEE 1-2V LT TECHNIQUE: Frontal and lateral views left knee HISTORY: post op evaluation COMPARISONS: X-ray left knee dated July 02, 2018 FINDINGS: There is a three-part knee prosthesis in anatomic alignment. There is acute postsurgical change in the adjacent soft tissues with soft tissue swelling and collect ions of air in the soft tissues. There is an overlying anterior dressing. IMPRESSION: 1. Three-part knee prosthesis in anatomic alignment with expected acute postsurgical change in the ad jacent soft tissues. This document is electronically signed by Kenisha Moreno MD., September 29 2018 09:46:02 PM ET
[2018-09-30] MEDS: PERCOCET 5/325 PO PRN ×3 (01:57→19:59)
[2018-09-30] MEDS: HALFPRIN EC PO SCH (09:03)
[2018-09-30] MEDS: LOVENOX SUB-Q SCH (09:03)
[2018-09-30] MEDS: TENORMIN PO SCH (09:21)
[2018-09-30] MEDS: THALITONE PO SCH (11:05)
--- NOTE | 2018-09-30 13:52 | Consultation ---
History of Present Illness - Reason for Consult Consult date: 09/30/18 Past History Past Medical History: arthritis, hypertension, hyperlipidemia Past Surgical History: Other (left knee surgery) Social history: no significant social history, full code Family history: no significant family history Medications and Allergies Allergies Allergy/AdvReac Type Severity Reaction Status Date / Time Tetanus Vaccines and Toxoid Allergy ANEMIA Verified 11/22/16 10:13 [Tetanus Vaccines & Toxoid] Home Medications Medication Instructions Recorded Confirmed Last Taken Type Aspirin [Adult Low Dose Aspirin EC] 81 mg PO DAILY 07/01/16 09/19/18 11/21/16 History Atenolol/Chlorthalidone [Tenoretic 1 tab PO QDAY 07/01/16 09/27/18 09/26/18 History 50-25] AtorvaSTATin [Lipitor] 20 mg PO DAILY 07/01/16 09/27/18 09/26/18 History Ibuprofen [Motrin 800 MG tab] 800 mg PO PRN PRN 07/01/16 09/19/18 11/20/16 History Active Meds: Active Medications Acetaminophen (Tylenol) 650 mg PO Q6H PRN PRN Reason: Non Cardiac Pain or Temp>100.5 Last Admin: 09/29/18 22:04 Dose: 650 mg Documented by: Aspirin (Halfprin Ec) 81 mg PO DAILY [facility] Last Admin: 09/30/18 09:03 Dose: 81 mg Documented by: Atenolol (Tenormin) 50 mg PO QDAY [facility] Last Admin: 09/30/18 09:21 Dose: 50 mg Documented by: Atorvastatin Calcium (Lipitor) 20 mg PO DAILY [facility] Last Admin: 09/30/18 09:03 Dose: 20 mg Documented by: Chlorthalidone (Thalitone) 25 mg PO QDAY [facility] Last Admin: 09/29/18 16:50 Dose: Not Given Documented by: Enoxaparin Sodium (Lovenox) 40 mg SUB-Q QDAY [facility] Last Admin: 09/30/18 09:03 Dose: 40 mg Documented by: Hydromorphone HCl (Dilaudid) 0.5 mg IV Q10MIN PRN PRN Reason: Pain , Severe (7-10) Ibuprofen (Motrin) 600 mg PO Q6H PRN PRN Reason: Pain, Mild (1-3) Morphine Sulfate (Morphine) 4 mg IV Q4H PRN PRN Reason: Pain , Severe (7-10) Last Admin: 09/29/18 15:20 Dose: 4 mg Documented by: Ondansetron HCl (Zofran) 4 mg IV Q8H PRN PRN Reason: Nausea And Vomiting Oxycodone/Acetaminophen (Percocet 5/325) 1 tab PO Q6H PRN PRN Reason: Pain, Moderate (4-6) Last Admin: 09/30/18 12:38 Dose: 1 tab Documented by: Exam - Constitutional Vitals: Temp Pulse Resp BP Pulse Ox 98.6 F 84 18 133/60 94 09/30/18 04:26 09/30/18 04:26 09/30/18 04:26 09/30/18 09:21 09/30/18 04:26 Results - Labs CBC & Chem 7: 09/29/18 12:55 09/25/18 09:00 Labs: Abnormal lab results 09/29/18 Range/Units 12:55 WBC 51.4 H* (4.5-11.0) K/mm3 RBC 3.33 L (3.65-5.03) M/mm3 Hgb 9.6 L (10.1-14.3) gm/dl Hct 29.7 L (30.3-42.9) %
--- NOTE | 2018-09-30 13:57 | Progress Note ---
Assessment and Plan - Patient Problems (1) Numbness of right hand Current Visit: Yes Status: Acute Plan to address problem: Possibly related to edema and slight improvement noted will continue anti- inflammatory medication and local treatment CT scan of the neck procedure details noted to be normal with no evidence of nerve impingement in the cervical root (2) Hypertension Current Visit: Yes Status: Chronic Qualifiers: Hypertension type: essential hypertension Qualified Code(s): I10 - Essential (primary) hypertension Plan to address problem: Blood pressure is stable on current medications and continue same regimen (3) History of total left knee replacement Current Visit: No Status: Acute Plan to address problem: Patient had 5 post operative, consider physical therapy and early ambulation. (4) Neutrophilic leukocytosis Current Visit: No Status: Acute Plan to address problem: Patient with history of CLL currently being followed by oncologist customer marketing intern Dr. Marinelli outpatient in progress, WBC count noted around his sameelevated range, we'll continue to monitor Subjective Date of service: 09/30/18 Interval history: Patient seen and examined , has ongoing numbness and pain in the right hand ,no chest pain and no shotrness of breath ,no fever reported by the nursing staff ,pain at site of surgery . Objective - Constitutional Vitals: Vital Signs - 12hr 09/30/18 09/30/18 09/30/18 01:57 02:57 04:26 Temperature 98.6 F Pulse Rate 84 Respiratory 18 18 18 Rate Blood Pressure 115/63 O2 Sat by Pulse 94 Oximetry 09/30/18 09:21 Temperature Pulse Rate Respiratory Rate Blood Pressure 133/60 O2 Sat by Pulse Oximetry General appearance: Present: no acute distress - EENT ENT: dentition normal - Neck Neck: supple, normal ROM - Respiratory Respiratory effort: normal Respiratory: bilateral: CTA - Cardiovascular Rhythm: regular Heart Sounds: Present: S1 & S2 Extremities: no ischemia, pulses symmetrical Extremity abnormal: other (Surgery site in the right knee dressed no active drainage ,no edema good peripheral pulses .) - Gastrointestinal General gastrointestinal: Present: soft, non-tender, normal bowel sounds Rectal Exam: deferred - Genitourinary Female genitourinary: deferred - Musculoskeletal Musculoskeletal: strength equal bilaterally - Neurologic Neurologic: CNII-XII intact, moves all extremities - Psychiatric Psychiatric: appropriate mood/affect, cooperative - Labs CBC & Chem 7: 09/29/18 12:55 09/25/18 09:00
[2018-09-30] MEDS: IBUPROFEN PO PRN ×2 (14:19→21:55)
[2018-09-30] MEDS: NACL 0.9% 1000 ML 1,000 ML IV SCH (21:50)
[2018-10-01] MEDS: PERCOCET 5/325 PO PRN ×4 (02:38→23:29)
[2018-10-01] MEDS: IBUPROFEN PO PRN ×3 (06:19→19:54)
[2018-10-01] MEDS: NACL 0.9% 1000 ML 1,000 ML IV SCH ×3 (06:23→23:30)
--- NOTE | 2018-10-01 08:39 | Progress Note ---
Assessment and Plan - Patient Problems (1) Numbness of right hand Current Visit: Yes Status: Acute Plan to address problem: Possibly related to edema and slight improvement noted will continue anti- inflammatory medication and local treatment CT scan of the neck procedure details noted to be normal with no evidence of nerve impingement in the cervical root (2) Hypertension Current Visit: Yes Status: Chronic Qualifiers: Hypertension type: essential hypertension Qualified Code(s): I10 - Essential (primary) hypertension Plan to address problem: Blood pressure is stable on current medications and continue same regimen (3) History of total left knee replacement Current Visit: No Status: Acute Plan to address problem: Patient had 5 post operative, consider physical therapy and early ambulation. (4) Neutrophilic leukocytosis Current Visit: No Status: Acute Plan to address problem: Patient with history of CLL currently being followed by oncologist caul dresser Dr. Marinelli outpatient in progress, WBC count noted around his sameelevated range, we'll continue to monitor (5) Headache Current Visit: Yes Status: Acute Qualifiers: Headache type: tension-type Plan to address problem: Patient remains afebrile and vitals and blood pressure at stable we will continue to monitor and treat with anti-inflammatory analgesics for now Subjective Date of service: 10/01/18 Interval history: Patient seen and examined, chart reviewed, patient stated that she is still having headache and numbness on the right hand as only improved slightly but denied any chest pain or shortness of breath and no fever reported by the nursing staff. Headache is described as generalized but obtained some relief with Motrin given yesterday. Patient otherwise improving gradually and make an effort at ambulating without support. Objective - Exam Narrative Exam: GENERAL: Not in acute distress not pale or jaundiced no cyanosis, slight discomfort with movement of the left lower extremity HEENT: Normocephalic, mucous membranes moist no exudates or lesions NECK: No JVD, no thyroid enlargement and no lymphadenopathy. CHEST/LUNGS: Good air exchange bilaterally, no wheeze, no rales and no rhonchi. No chest wall tenderness, percussion is normal, symmetrical chest wall. HEART/CARDIOVASCULAR: Regular rate and rhythm, S1 and S2 only, no murmur. ABDOMEN: Abdomen is soft, nondistended, no guarding, no rebound tenderness, no masses palpable per abdomen, active bowel sounds. SKIN: Warm and dry, no rash. NEURO: Awake, alert, oriented x3, speech normal. Power 5/5 in all the extremities. EXTREMITIES: No pedal edema, good peripheral pulses, no finger or toe clubbing. Left knee surgical site is dressed no or bleeding or drainage observed from site of surgery. - Constitutional Vitals: Vital Signs - 12hr 09/30/18 10/01/18 10/01/18 23:20 01:22 01:23 Temperature Pulse Rate 59 L 58 L Respiratory 18 16 Rate Blood Pressure 99/46 O2 Sat by Pulse 95 95 Oximetry 10/01/18 10/01/18 10/01/18 02:38 05:03 06:19 Temperature 98.0 F Pulse Rate 57 L Respiratory 18 18 18 Rate Blood Pressure 107/47 O2 Sat by Pulse 95 Oximetry 10/01/18 07:41 Temperature 97.4 F L Pulse Rate 66 Respiratory 18 Rate Blood Pressure 106/42 O2 Sat by Pulse 96 Oximetry - Labs CBC & Chem 7: 09/29/18 12:55 09/25/18 09:00
[2018-10-01] MEDS: TENORMIN PO SCH (09:11)
[2018-10-01] MEDS: THALITONE PO SCH (09:12)
[2018-10-01] MEDS: LOVENOX SUB-Q SCH (09:12)
[2018-10-01] MEDS: HALFPRIN EC PO SCH (09:12)
[2018-10-01 09:23] LABS: Alanine Aminotransferase 30 units/L (7-56); Albumin 3.4 g/dL (3.9-5); BUN/Creatinine Ratio 18; Blood Urea Nitrogen 16 mg/dL (7-17); Calcium 8.9 mg/dL (8.4-10.2); Hemolysis Index 1
[2018-10-01 10:00] LABS: Hemoglobin 8.6 gm/dl (10.1-14.3); Red Blood Count 3.09 M/mm3 (3.65-5.03)
[2018-10-01 10:01] LABS: Hematocrit 27.3 % (30.3-42.9); Mean Corpuscular HGB Conc 32 % (30-34); Mean Corpuscular Volume 88 fl (79-97); Red Cell Distribution Width 13.7 % (13.2-15.2)
[2018-10-01 10:02] LABS: Platelet Count 245 K/mm3 (140-440)
[2018-10-01 15:14] LABS: Basophils % (Manual) 0 % (0.0-1.8); Monocytes % (Manual) 0 % (0.0-7.3); Total Cells Counted 100
[2018-10-01 15:15] LABS: Smudge Cells 1+
[2018-10-01 15:16] LABS: Burr Cells Few; Platelet Estimate Consistent w Auto; Schistocytes Few
--- NOTE | 2018-10-01 17:10 | Progress Note ---
Assessment and Plan Status post revision left total knee replacement Doing well from a PT standpoint Hopefully discharge soon Subjective Date of service: 10/01/18 Interval history: No complaints noted patient progressing well with physical therapy Objective Vital signs: Vital Signs - 12hr 10/01/18 10/01/18 10/01/18 06:19 07:41 09:11 Temperature 97.4 F L Pulse Rate 66 63 Respiratory 18 18 Rate Blood Pressure 106/42 122/51 O2 Sat by Pulse 96 Oximetry 10/01/18 11:08 Temperature 97.8 F Pulse Rate 62 Respiratory 18 Rate Blood Pressure 124/45 O2 Sat by Pulse 97 Oximetry Narrative Exam: Postoperative dressings removed wound inspected no signs of infection minimal drainage compartments soft Homans sign negative good capillary refill - Labs CBC & BMP: 10/01/18 08:49 10/01/18 08:49 Labs: Abnormal lab results 10/01/18 10/01/18 Range/Units 08:49 08:49 WBC 46.1 H* (4.5-11.0) K/mm3 RBC 3.09 L (3.65-5.03) M/mm3 Hgb 8.6 L (10.1-14.3) gm/dl Hct 27.3 L (30.3-42.9) % Seg Neuts % (Manual) 16.0 L (40.0-70.0) % Lymphocytes % (Manual) 83.0 H (13.4-35.0) % Lymphocytes # (Manual) 38.3 H (1.2-5.4) K/mm3 Eosinophils # (Manual) 0.5 H (0.0-0.4) K/mm3 Potassium 3.4 L (3.6-5.0) mmol/L Glucose 111 H (65-100) mg/dL Albumin 3.4 L (3.9-5) g/dL
[2018-10-02] MEDS: PERCOCET 5/325 PO PRN ×2 (06:24→12:13)
[2018-10-02] MEDS: LOVENOX SUB-Q SCH (10:24)
[2018-10-02] MEDS: TENORMIN PO SCH (10:25)
[2018-10-02] MEDS: THALITONE PO SCH (10:25)
[2018-10-02] MEDS: HALFPRIN EC PO SCH (10:25)
[2018-10-02] MEDS: IBUPROFEN PO PRN (10:53)
[2018-10-02 11:54] VITALS: BP 117/57
--- NOTE | 2018-10-02 13:01 | Discharge Summary ---
Providers - Providers Date of Admission: 09/27/18 07:22 Date of discharge: 10/02/18 Attending physician: CECILIA CUMMINGS MD 09/27/18 11:21 Consult to Case Management [CONS] Routine Services Needed at Discharge: Home Health Services DME Equipment Physical Therapy Notified:: ELECTRICIAN MANAGER 09/27/18 11:25 Physical Therapy Evaluation and Treat [CONS] Routine Comment: Reason For Exam: postoperative evaluation Weight bearing status?: Full wt bearing Assistive devices?: Yes If so list: Walker 09/28/18 16:22 Consult to Physician [CONS] Urgent Comment: Consulting Provider: STANFORD LOCK Physician Instructions: Reason For Exam: Medical Management Primary care physician: JEWEL MCDANIEL Hospitalization Reason for admission: persistent left knee pain Condition: Stable Procedures: Revision left total knee replacement Hospital course: 57 y/o female with c/o left knee pain for past several months, she underwent initial TKR November and c/o pain since then recent xrays taken prior to surgery revealed aseptic loosening of the tibial component. Admitted and taken to the OR where the tibial component revised. Post op seen by internal medicine and physical therapy. Case management services consulted for home health services. Disposition: DC- TO HOME OR SELFCARE - Discharge Diagnoses (1) Degenerative arthritis of knee Status: Acute Qualifiers: Osteoarthritis type: primary Laterality: left Qualified Code(s): M17.12 - Unilateral primary osteoarthritis, left knee (2) History of total left knee replacement Status: Acute Core Measure Documentation - Palliative Care Palliative Care/ Comfort Measures: Not Applicable - Core Measures Any of the following diagnoses?: none - VTE Discharge Requirements Deep Vein Thrombosis/Pulmonary Embolism Present on Admission: No Has pt received <5 days of overlap therapy or INR<2.0: Yes Anticoagulant overlap therapy prescribed at discharge: Yes Contraindication No Overlap Therapy order at DC: Medical Contraindication - Acute ND Discharge Requirements Aspirin at discharge: No Reason for no aspirin on DC: Medical contraindication NINA/ARB for LVSD if EF <40%: Not Applicable Reason for no NINA/ARB: Medical contraindication Reason for no beta demetria on DC: Medical contraindication - Heart Failure Discharge Requirements NINA/ARB for LVSD if EF <40%: Not Applicable - Stroke Discharge Requirements Statin for LDL = or >70 mg/dl on DC: Not Applicable Exam - Physical Exam Narrative exam: Postoperative dressings removed wound inspected no signs of infection minimal drainage compartments soft Homans sign negative good capillary refill - Constitutional Vitals: Temp Pulse Resp BP Pulse Ox 98.1 F 59 L 18 117/57 99 10/02/18 11:28 10/02/18 11:28 10/02/18 11:28 10/02/18 11:28 10/02/18 11:28 General appearance: Present: no acute distress, well-nourished - EENT Eyes: Present: PERRL ENT: hearing intact, clear oral mucosa - Neck Neck: Present: supple, normal ROM - Respiratory Respiratory effort: normal Respiratory: bilateral: CTA - Cardiovascular Heart Sounds: Present: S1 & S2. Absent: rub, click - Extremities Extremities: pulses symmetrical, No edema Peripheral Pulses: within normal limits - Abdominal General gastrointestinal: Present: soft, non-tender, non-distended, normal bowel sounds Female genitourinary: Present: normal - Integumentary Integumentary: Present: clear, warm, dry - Musculoskeletal Musculoskeletal: gait normal, strength equal bilaterally - Psychiatric Psychiatric: appropriate mood/affect, intact judgment & insight - Neurologic Neurologic: CNII-XII intact, moves all extremities Plan Activity: advance as tolerated Weight Bearing Status: Weight Bear as Tolerated Diet: regular Wound: keep clean and dry Special Instructions: physical therapy Durable Medical Equipment Needed Upon Discharge: Walker-Standard, Bedside Commode Follow up with: JEWEL MCDANIEL MD [Primary Care Provider] - 7 Days Prescriptions: Apixaban [Eliquis] 0 mg PO BID #42 tablet Oxycodone HCl/Acetaminophen [Percocet 7.5/325 mg] 1 each PO Q6HR PRN #30 tablet PRN Reason: Pain Other Discharge Orders: Physicial Therapy (Amb) Location: None Selected
== END 2018-10-02 17:00 | disposition home or self-care (01) | DRG 467 ==
LOC: 3A 07:22 → EEVIPCON 07:22 → 3B-SURG 12:36
PROVIDERS: ADMIT Orthopaedic Surgery; ATTEND Orthopaedic Surgery
PROC: 0SPD0JZ Removal of Synthetic Substitute from Left Knee Joint, Open Approach (ICD-10-PCS; principal; 2018-09-27)
PROC: 0SRD0J9 Replacement of Left Knee Joint with Synthetic Substitute, Cemented, Open Approach (ICD-10-PCS; 2018-09-27)
DX: T84.033A Mechanical loosening of internal left knee prosthetic joint, initial encounter (principal); D62 Acute posthemorrhagic anemia; C91.10 Chronic lymphocytic leukemia of B-cell type not having achieved remission; I10 Essential (primary) hypertension; E78.5 Hyperlipidemia, unspecified; Y83.8 Other surgical procedures as the cause of abnormal reaction of the patient, or of later complication, without mention of misadventure at the time of the procedure; R20.2 Paresthesia of skin; Z90.710 Acquired absence of both cervix and uterus; Z82.49 Family history of ischemic heart disease and other diseases of the circulatory system; Z82.3 Family history of stroke; Z79.899 Other long term (current) drug therapy; Z88.7 Allergy status to serum and vaccine; Z79.82 Long term (current) use of aspirin; Y92.098 Other place in other non-institutional residence as the place of occurrence of the external cause
CPT/HCPCS: 36415; 64450; 71045; 72125; 80053; 81001; 82962; 85007; 85014; 85018; 85025; 85027; 87040; 87075; 87116; 88184; 88185; 88304; 88305; 88311; 93005; 93010; 94760; G0378; A9270-GY; C1776; J0690; J1100; J1170; J1650; J1885; J2250; J2270; J2405; J2704; J3010; J7030; J7050; J7120

== ENCOUNTER 2018-11-05 10:03 | Outpatient (CLI) | payer BC ==
[2018-11-05 10:26] LABS: Hemoglobin 11.2 gm/dl (10.1-14.3); Mean Corpuscular HGB Conc 31 % (30-34); Mean Corpuscular Volume 88 fl (79-97); Platelet Count 270 K/mm3 (140-440); Red Blood Count 4.09 M/mm3 (3.65-5.03)
[2018-11-05 10:42] LABS: Alanine Aminotransferase 12 units/L (7-56); Albumin 4.9 g/dL (3.9-5); BUN/Creatinine Ratio 31; Blood Urea Nitrogen 25 mg/dL (7-17); Calcium 9.8 mg/dL (8.4-10.2); Chol/HDL Ratio 4.66 %; HDL Cholesterol 39 mg/dL (40-59); Hemolysis Index 1; LDL Cholesterol,Direct 129 mg/dL (50-130)
== END 2018-11-05 10:04 | disposition home or self-care (01) ==
LOC: LAB 10:03
PROVIDERS: ATTEND Internal Medicine
DX: I10 Essential (primary) hypertension (principal); E78.5 Hyperlipidemia, unspecified; E78.00 Pure hypercholesterolemia, unspecified; Z90.710 Acquired absence of both cervix and uterus
CPT/HCPCS: 36415; 80053; 80061; 85027

== ENCOUNTER 2018-11-13 12:03 | Outpatient (CLI) | payer BC ==
--- NOTE | 2018-11-13 13:25 | XRay Report ---
X-RAY LEFT KNEE TWO VIEWS: 11/13/18 12:12:00 CLINICAL: Status post total knee replacement. COMPARISON: 09/29/18 FINDINGS: Normal appearance of the prosthesis. Normal alignment. Anterior subcutaneous soft tissue edema has increased since the last exam. No joint effusion. No soft tissue air. IMPRESSION: Status post total knee replacement with increased anterior subcutaneous soft tissue edema.
== END 2018-11-13 12:04 | disposition home or self-care (01) ==
LOC: XRAY 12:03
PROVIDERS: ATTEND Orthopaedic Surgery
DX: M17.12 Unilateral primary osteoarthritis, left knee (principal); R60.9 Edema, unspecified; I10 Essential (primary) hypertension; E78.5 Hyperlipidemia, unspecified; E78.00 Pure hypercholesterolemia, unspecified; Z96.652 Presence of left artificial knee joint

== ENCOUNTER 2019-02-13 11:07 | Outpatient (CLI) | payer BC ==
[2019-02-13 12:21] LABS: Hematocrit 35.7 % (30.3-42.9); Hemoglobin 11.1 gm/dl (10.1-14.3); Mean Corpuscular HGB Conc 31 % (30-34); Mean Corpuscular Volume 88 fl (79-97); Platelet Count 218 K/mm3 (140-440); Red Blood Count 4.06 M/mm3 (3.65-5.03); Red Cell Distribution Width 14.1 % (13.2-15.2)
[2019-02-13 12:44] LABS: Alanine Aminotransferase 12 units/L (7-56); Albumin 4.7 g/dL (3.9-5); BUN/Creatinine Ratio 25; Blood Urea Nitrogen 20 mg/dL (7-17); Calcium 9.8 mg/dL (8.4-10.2); Hemolysis Index 6
[2019-02-13 14:55] LABS: Basophils % (Manual) 0 % (0.0-1.8); Eosinophils % (Manual) 0 % (0.0-4.3); Total Cells Counted 100
[2019-02-13 14:56] LABS: Platelet Estimate Consistent w Auto; RBC Morphology Normal; Smudge Cells 3+
== END 2019-02-13 11:08 | disposition home or self-care (01) ==
LOC: LAB 11:07
PROVIDERS: ATTEND Internal Medicine Hematology & Oncology
DX: C91.10 Chronic lymphocytic leukemia of B-cell type not having achieved remission (principal); I10 Essential (primary) hypertension; E78.00 Pure hypercholesterolemia, unspecified; Z90.710 Acquired absence of both cervix and uterus
CPT/HCPCS: 36415; 80053; 85007

== ENCOUNTER 2019-08-30 12:23 | Outpatient (CLI) | payer BC ==
--- NOTE | 2019-08-30 14:12 | XRay Report ---
BILATERAL ANKLES 3 VIEWS BILATERAL FEET 5 VIEWS INDICATION / CLINICAL INFORMATION: Pain in unspecified foot. Pain in ankle unspecified and joints of unspecified foot. COMPARISON: Right ankle series from 08/15/2018. FINDINGS: BONES and JOINT(S): No acute fracture or subluxation. There is moderate osteoarthritis of the ankles, right greater than left. Moderate osteoarthritis is also seen along the mid feet. Hallux valgus is n oted on the right. SOFT TISSUES: Moderate generalized edema is noted along the right ankle, particularly laterally. Ther e is mild generalized edema along the left ankle. No additional significant abnormalities. ADDITIONAL FINDINGS: None. IMPRESSION: Bilateral ankle edema, right greater than left, with degenerative changes of the feet and ankles, wor se on the right. Signer Name: Mauricio Schwartz MD Signed: 08/30/2019 2:08 PM Workstation Name: [id number]
--- NOTE | 2019-08-30 14:13 | XRay Report ---
LEFT KNEE 3 VIEWS INDICATION / CLINICAL INFORMATION: M17.12 UNLATERAL PRIMARY LEFT KNEE pain in left knee. History of left knee surgery. COMPARISON: Left knee radiographs from 11/13/2018. FINDINGS: BONES and JOINT(S): No acute fracture or subluxation. A total arthroplasty appears intact and in good position. SOFT TISSUES: No significant abnormality. ADDITIONAL FINDINGS: None. IMPRESSION: 1. No acute findings. Signer Name: Mauricio Schwartz MD Signed: 08/30/2019 2:09 PM Workstation Name: [id number]
== END 2019-08-30 12:24 | disposition home or self-care (01) ==
LOC: XRAY 12:23
PROVIDERS: ATTEND Orthopaedic Surgery
DX: M19.072 Primary osteoarthritis, left ankle and foot (principal); M19.071 Primary osteoarthritis, right ankle and foot; M20.11 Hallux valgus (acquired), right foot

== ENCOUNTER 2020-08-05 10:03 | Outpatient (CLI) | payer BC ==
--- NOTE | 2020-08-05 12:09 | XRay Report ---
LUMBOSACRAL SPINE 5 VIEWS INDICATION: Back pain. COMPARISON: None. IMPRESSION: There is 6 mm anterolisthesis of L4 with respect to L5 which appears to be secondary to degenerative facet arthropathy. The remaining lumbar vertebra are normal in alignment. Moderate mult ilevel degenerative disc disease and facet arthropathy are identified. L4-5 is the most affected leve l. Bilateral neural foraminal narrowing could be present at this level. No acute osseous or soft tis pauline abnormality. LEFT KNEE 3 VIEWS INDICATION: Left knee pain. COMPARISON: 08/30/2019 IMPRESSION: Left knee arthroplasty changes are again identified. There is normal articulation at th e joint. I question if there is mild lucency surrounding the tibial component which could represent l oosening. Please correlate with the patient. There is no evidence for acute bony abnormality. BILATERAL ANKLES 3 VIEWS BILATERAL FEET 3 VIEWS INDICATION: Bilateral ankle pain. Bilateral foot pain. COMPARISON: 08/30/2019 IMPRESSION: There is mild soft tissue swelling or edema, right greater than left. Mild to moderate osteoarthritic changes at the left ankle appears stable. No significant degenerative changes in the l eft foot. Small left plantar spur is noted. No acute osseous findings. Moderate to severe degenerative changes are identified and unchanged at the left ankle and midfoot. T here is suggestion of medial rotary subluxation at the subtalar joint. There is subtle talar joint is poorly evaluated with suspected advanced degenerative changes in the right subtalar joint. This coul d also represent an early Charcot joint. Moderate hallux valgus deformity in the right foot is again noted. Moderate plantar spur. No acute osseous findings are detected. Signer Name: Joe Buck Jr, MD Signed: 08/05/2020 12:05 PM Workstation Name: [id number]
== END 2020-08-05 10:04 | disposition home or self-care (01) ==
LOC: XRAY 10:03
PROVIDERS: ATTEND Orthopaedic Surgery
DX: M47.816 Spondylosis without myelopathy or radiculopathy, lumbar region (principal); M48.061 Spinal stenosis, lumbar region without neurogenic claudication; M19.072 Primary osteoarthritis, left ankle and foot; M77.9 Enthesopathy, unspecified; M77.8 Other enthesopathies, not elsewhere classified; M20.11 Hallux valgus (acquired), right foot; Z96.652 Presence of left artificial knee joint
CPT/HCPCS: 72110

== ENCOUNTER 2020-09-02 10:52 | Outpatient (CLI) | payer BC ==
--- NOTE | 2020-09-02 15:50 | Nuclear Medicine Report ---
NUCLEAR MEDICINE BONE SCAN, WHOLE BODY INDICATION: MALIGNANT NEOPLASM. TECHNIQUE: 26 mCi of Tc-99m MDP were injected IV. Whole body images were obtained. COMPARISON: No relevant prior imaging study available. FINDINGS: Skeletal Structures: Fairly symmetric, likely degenerative uptake is present involving the bilateral shoulders, spine, bilateral hips, right knee and bilateral ankles.. Skeletal Lesions: There is a subtle focus of increased radiotracer accumulation in the right frontal bone of uncertain etiology. A metastatic lesion is difficult to exclude.. Soft Tissues: Normal. Kidneys: Normal, symmetric activity. Additional Findings: There is mild increased uptake surrounding the tibial component of the left knee replacement concerning for loosening. IMPRESSION: Questionable right frontal bone lesion as described. Consider correlation with x-ray or CT. Degenerative findings as described. Question loosening of the tibial component of the left knee prosthesis.. Signer Name: Joe Buck Jr, MD Signed: 09/02/2020 3:46 PM Workstation Name: [id number]
== END 2020-09-02 10:53 | disposition home or self-care (01) ==
LOC: NM 10:52
PROVIDERS: ATTEND Orthopaedic Surgery
DX: M17.12 Unilateral primary osteoarthritis, left knee (principal); M25.562 Pain in left knee; M89.9 Disorder of bone, unspecified; Z96.652 Presence of left artificial knee joint
CPT/HCPCS: 78306; A9503

== ENCOUNTER 2020-09-08 13:25 | Outpatient (CLI) | payer BC ==
[2020-09-08 14:16] LABS: Hematocrit 31.5 % (30.3-42.9); Hemoglobin 10.1 gm/dl (10.1-14.3); Mean Corpuscular HGB Conc 32 % (30-34); Mean Corpuscular Volume 89 fl (79-97); Platelet Count 244 K/mm3 (140-440); Red Blood Count 3.55 M/mm3 (3.65-5.03); Red Cell Distribution Width 13.2 % (13.2-15.2)
[2020-09-08 14:32] LABS: Alanine Aminotransferase 27 units/L (7-56); Albumin 4.7 g/dL (3.9-5); BUN/Creatinine Ratio 31; Blood Urea Nitrogen 25 mg/dL (7-17); Calcium 9.5 mg/dL (8.4-10.2); Chol/HDL Ratio 3.65 %; HDL Cholesterol 40 mg/dL (40-59); Hemolysis Index 3; LDL Cholesterol,Direct 101 mg/dL (50-130)
[2020-09-08 16:23] LABS: Total Cells Counted 100
[2020-09-08 16:24] LABS: Smudge Cells 2+
[2020-09-08 16:25] LABS: RBC Morphology Normal
== END 2020-09-08 13:26 | disposition home or self-care (01) ==
LOC: LAB 13:25
PROVIDERS: ATTEND Internal Medicine
DX: I10 Essential (primary) hypertension (principal)
CPT/HCPCS: 36415; 80053; 80061; 85007; 85025

== ENCOUNTER 2020-10-28 09:46 | Outpatient (CLI) | payer BC ==
[2020-10-28 10:34] LABS: Hematocrit 31.2 % (30.3-42.9); Mean Corpuscular HGB Conc 32 % (30-34); Mean Corpuscular Volume 90 fl (79-97); Platelet Count 207 K/mm3 (140-440); Red Blood Count 3.47 M/mm3 (3.65-5.03); Red Cell Distribution Width 13.6 % (13.2-15.2)
[2020-10-28 10:37] LABS: Alanine Aminotransferase 15 units/L (7-56); Albumin 4.6 g/dL (3.9-5); BUN/Creatinine Ratio 28; Blood Urea Nitrogen 25 mg/dL (7-17); Calcium 9.2 mg/dL (8.4-10.2); Hemolysis Index 15
== END 2020-10-28 09:47 | disposition home or self-care (01) ==
LOC: LAB 09:46
PROVIDERS: ATTEND Internal Medicine Hematology & Oncology
DX: C91.10 Chronic lymphocytic leukemia of B-cell type not having achieved remission (principal)
CPT/HCPCS: 36415; 80053; 85027; 88184; 88185

== ENCOUNTER 2020-11-11 11:55 | Outpatient (CLI) | payer BC | END 2020-11-11 11:56 | disposition home or self-care (01) | LOC: XRAY 11:55 | PROVIDERS: ATTEND Orthopaedic Surgery | DX: M25.462 Effusion, left knee (principal); L21.9 Seborrheic dermatitis, unspecified; M17.12 Unilateral primary osteoarthritis, left knee; R93.0 Abnormal findings on diagnostic imaging of skull and head, not elsewhere classified; Z96.652 Presence of left artificial knee joint | CPT/HCPCS: 70250 ==

== ENCOUNTER 2020-12-22 11:52 | Outpatient (CLI) | payer BC ==
[2020-12-22 12:47] LABS: Alanine Aminotransferase 13 units/L (7-56); Albumin 4.7 g/dL (3.9-5); BUN/Creatinine Ratio 35; Blood Urea Nitrogen 28 mg/dL (7-17); Hemolysis Index 2
[2020-12-22 12:55] LABS: Erythrocyte Sedimentation Rate 10 mm/Hr (0-20)
[2020-12-22 12:59] LABS: Hematocrit 29.2 % (30.3-42.9); Hemoglobin 9.2 gm/dl (10.1-14.3); Mean Corpuscular HGB Conc 32 % (30-34); Mean Corpuscular Volume 90 fl (79-97); Platelet Count 203 K/mm3 (140-440); Red Blood Count 3.26 M/mm3 (3.65-5.03); Red Cell Distribution Width 13.7 % (13.2-15.2)
== END 2020-12-22 11:53 | disposition home or self-care (01) ==
LOC: LAB 11:52
PROVIDERS: ATTEND Nurse Practitioner
DX: C91.10 Chronic lymphocytic leukemia of B-cell type not having achieved remission (principal); D72.820 Lymphocytosis (symptomatic); C91.Z0 Other lymphoid leukemia not having achieved remission
CPT/HCPCS: 36415; 80053; 83615; 85027; 85652

== ENCOUNTER 2021-01-11 11:43 | Outpatient (CLI) | payer BC ==
[2021-01-11 13:41] LABS: Iron 33 ug/dL (37-170)
[2021-01-11 13:47] LABS: Total Iron Binding Capacity 320 mcg/dL (250-450)
== END 2021-01-11 11:44 | disposition home or self-care (01) ==
LOC: LAB 11:43
PROVIDERS: ATTEND Internal Medicine Hematology & Oncology
DX: C91.10 Chronic lymphocytic leukemia of B-cell type not having achieved remission (principal)
CPT/HCPCS: 36415; 82728; 83550

== ENCOUNTER 2021-01-13 10:48 | Outpatient (CLI) | payer BC ==
[2021-01-13 11:43] LABS: Hematocrit 30.8 % (30.3-42.9); Hemoglobin 9.8 gm/dl (10.1-14.3); Mean Corpuscular HGB Conc 32 % (30-34); Mean Corpuscular Volume 92 fl (79-97); Platelet Count 206 K/mm3 (140-440); Red Blood Count 3.36 M/mm3 (3.65-5.03); Red Cell Distribution Width 13.7 % (13.2-15.2)
[2021-01-13 11:53] LABS: Alanine Aminotransferase 20 units/L (7-56); Albumin 4.7 g/dL (3.9-5); BUN/Creatinine Ratio 25; Blood Urea Nitrogen 20 mg/dL (7-17); Calcium 10.1 mg/dL (8.4-10.2); Hemolysis Index 3
[2021-01-13 12:00] LABS: Erythrocyte Sedimentation Rate 20 mm/Hr (0-20)
== END 2021-01-13 10:49 | disposition home or self-care (01) ==
LOC: LAB 10:48
PROVIDERS: ATTEND Internal Medicine Hematology & Oncology
DX: Z00.00 Encounter for general adult medical examination without abnormal findings (principal)
CPT/HCPCS: 36415; 80053; 83615; 85027; 85652

== ENCOUNTER 2021-02-15 10:22 | Outpatient (CLI) | payer BC ==
[2021-02-15 11:14] LABS: Alanine Aminotransferase 26 units/L (7-56); Albumin 4.7 g/dL (3.9-5); BUN/Creatinine Ratio 29; Blood Urea Nitrogen 26 mg/dL (7-17); Calcium 9.7 mg/dL (8.4-10.2); Hemolysis Index 2
[2021-02-15 13:24] LABS: Erythrocyte Sedimentation Rate 20 mm/Hr (0-20)
[2021-02-15 15:41] LABS: Mean Corpuscular HGB Conc 30 % (30-34); Mean Corpuscular Volume 93 fl (79-97); Platelet Count 196 K/mm3 (140-440); Red Blood Count 3.66 M/mm3 (3.65-5.03); Red Cell Distribution Width 13.8 % (13.2-15.2)
[2021-02-15 16:12] LABS: Hematocrit 34.2 % (30.3-42.9); Hemoglobin 10.2 gm/dl (10.1-14.3)
[2021-02-15 17:35] LABS: Total Cells Counted 100
[2021-02-15 17:36] LABS: Platelet Estimate Consistent w Auto; Smudge Cells 1+
== END 2021-02-15 10:23 | disposition home or self-care (01) ==
LOC: LAB 10:22
PROVIDERS: ATTEND Internal Medicine Hematology & Oncology
DX: C91.10 Chronic lymphocytic leukemia of B-cell type not having achieved remission (principal)
CPT/HCPCS: 36415; 80053; 83615; 85007; 85025; 85652

== ENCOUNTER 2021-03-15 10:38 | Outpatient (CLI) | payer BC ==
[2021-03-15 11:37] LABS: Hemoglobin 10.2 gm/dl (10.1-14.3); Mean Corpuscular HGB Conc 31 % (30-34); Mean Corpuscular Volume 91 fl (79-97); Platelet Count 202 K/mm3 (140-440); Red Blood Count 3.63 M/mm3 (3.65-5.03); Red Cell Distribution Width 13.8 % (13.2-15.2)
[2021-03-15 12:00] LABS: Alanine Aminotransferase 24 units/L (7-56); Albumin 4.8 g/dL (3.9-5); BUN/Creatinine Ratio 26; Blood Urea Nitrogen 26 mg/dL (7-17); Calcium 9.8 mg/dL (8.4-10.2); Hemolysis Index 1
--- NOTE | 2021-03-15 12:49 | Vascular Lab Report ---
DUPLEX DOPPLER LOWER EXTREMITY VEINS, RIGHT INDICATION / CLINICAL INFORMATION: RIGHT LEG SWELLING AND PAIN. TECHNIQUE: Duplex doppler imaging was performed through the veins of the right lower extremity using venous compression and other maneuvers. COMPARISON: Right lower extremity venous Doppler 05/10/2010. FINDINGS: RIGHT COMMON FEMORAL VEIN: Negative. RIGHT FEMORAL VEIN: Negative. RIGHT POPLITEAL VEIN: Negative. RIGHT CALF VEINS: Negative. ADDITIONAL FINDINGS: None. IMPRESSION: Negative for DVT. Scribed by: Lia Rodriguez RDMS, RVT Scribed: 03/15/2021 11:23 AM I have reviewed the images, agree with this report, and edited this report as needed. Signer Name: Rod Jj MD Signed: 03/15/2021 12:45 PM Workstation Name: [id number]
[2021-03-15 13:51] LABS: Erythrocyte Sedimentation Rate 16 mm/Hr (0-20)
== END 2021-03-15 10:39 | disposition home or self-care (01) ==
LOC: VAS 10:38
PROVIDERS: ATTEND Internal Medicine Hematology & Oncology
DX: C91.Z0 Other lymphoid leukemia not having achieved remission (principal); C91.10 Chronic lymphocytic leukemia of B-cell type not having achieved remission; D72.820 Lymphocytosis (symptomatic); R22.41 Localized swelling, mass and lump, right lower limb
CPT/HCPCS: 36415; 80053; 83615; 85027; 85652

== ENCOUNTER 2021-04-13 11:35 | Outpatient (CLI) | payer BC ==
[2021-04-13 12:23] LABS: Alanine Aminotransferase 42 units/L (7-56); Albumin 4.9 g/dL (3.9-5); BUN/Creatinine Ratio 30; Blood Urea Nitrogen 24 mg/dL (7-17); Calcium 9.5 mg/dL (8.4-10.2); Hemolysis Index 3
[2021-04-13 12:24] LABS: Hematocrit 34.5 % (30.3-42.9); Hemoglobin 10.6 gm/dl (10.1-14.3); Mean Corpuscular HGB Conc 31 % (30-34); Mean Corpuscular Volume 90 fl (79-97); Platelet Count 212 K/mm3 (140-440); Red Blood Count 3.84 M/mm3 (3.65-5.03); Red Cell Distribution Width 14.6 % (13.2-15.2)
[2021-04-13 12:51] LABS: Erythrocyte Sedimentation Rate 14 mm/Hr (0-20)
[2021-04-13 16:13] LABS: Platelet Estimate Consistent w Auto; RBC Morphology Normal; Total Cells Counted 100
== END 2021-04-13 11:36 | disposition home or self-care (01) ==
LOC: LAB 11:35
PROVIDERS: ATTEND Internal Medicine Hematology & Oncology
DX: C91.10 Chronic lymphocytic leukemia of B-cell type not having achieved remission (principal); D72.820 Lymphocytosis (symptomatic)
CPT/HCPCS: 36415; 80053; 83615; 85007; 85025; 85652

== ENCOUNTER 2021-05-12 11:11 | Outpatient (CLI) | payer BC ==
[2021-05-12 13:05] LABS: Alanine Aminotransferase 19 units/L (7-56); Albumin 4.9 g/dL (3.9-5); BUN/Creatinine Ratio 33; Blood Urea Nitrogen 26 mg/dL (7-17); Calcium 9.7 mg/dL (8.4-10.2); Hemolysis Index 3
[2021-05-12 13:39] LABS: Hemoglobin 10.1 gm/dl (10.1-14.3); Mean Corpuscular HGB Conc 31 % (30-34); Mean Corpuscular Volume 89 fl (79-97); Platelet Count 186 K/mm3 (140-440); Red Cell Distribution Width 15.2 % (13.2-15.2)
[2021-05-12 13:59] LABS: Erythrocyte Sedimentation Rate 22 mm/Hr (0-20)
== END 2021-05-12 11:12 | disposition home or self-care (01) ==
LOC: LAB 11:11
PROVIDERS: ATTEND Internal Medicine Hematology & Oncology
DX: C91.10 Chronic lymphocytic leukemia of B-cell type not having achieved remission (principal); D72.820 Lymphocytosis (symptomatic)
CPT/HCPCS: 36415; 80053; 83615; 85027; 85652

== ENCOUNTER 2021-06-17 09:39 | Outpatient (CLI) | payer BC ==
--- NOTE | 2021-06-17 12:28 | PET Report ---
PET/CT HISTORY: C91.10 D72.820. Staging of chronic lymphocytic leukemia TECHNIQUE: The patient's fasting blood glucose was 100. The patient weighed 220 lbs. The patient w as injected with 14.7 mCi of FDG in the left hand at 1033 hours and imaging was started at 1118 hours . The patient was imaged from the skull base to the thighs. All CT scans at this location are perfor med using CT dose reduction for ALARA by means of automated exposure control. Images were reviewed on a workstation. COMPARISON: Bone scan dated 09/02/2020. CT chest abdomen and pelvis dated 08/23/2016 FINDINGS: IMAGED BRAIN: Physiologic FDG uptake. NECK: Physiologic FDG uptake. CHEST WALL: Physiologic FDG uptake. MEDIASTINUM: Physiologic FDG uptake. LUNGS: Physiologic FDG uptake. HEPATOBILIARY: Physiologic FDG uptake. PANCREAS: Physiologic FDG uptake. SPLEEN: Physiologic FDG uptake. KIDNEYS/BLADDER: Physiologic FDG uptake. ADRENAL GLANDS: Physiologic FDG uptake. GI/MESENTERY: Physiologic FDG uptake. PELVIC VISCERA: Physiologic FDG uptake. LYMPH NODES: Physiologic FDG uptake. No lymphadenopathy is detected. OSSEOUS STRUCTURES: Physiologic FDG uptake. ADDITIONAL FINDINGS: None. IMPRESSION: Negative PET CT. No FDG avid disease is detected. Signer Name: Joe Buck Jr, MD Signed: 06/17/2021 12:23 PM Workstation Name: [id number]
[2021-06-17 12:35] LABS: Alanine Aminotransferase 23 units/L (7-56); Blood Urea Nitrogen 18 mg/dL (7-17); Calcium 9.5 mg/dL (8.4-10.2); Hemolysis Index 2; Iron 45 ug/dL (37-170); Total Iron Binding Capacity 323 mcg/dL (250-450)
[2021-06-17 12:42] LABS: BUN/Creatinine Ratio 26
[2021-06-17 13:43] LABS: Mean Corpuscular HGB Conc 30 % (30-34); Mean Corpuscular Volume 90 fl (79-97); Platelet Count 199 K/mm3 (140-440); Red Blood Count 4.01 M/mm3 (3.65-5.03); Red Cell Distribution Width 14.8 % (13.2-15.2)
[2021-06-17 13:44] LABS: Hemoglobin 10.9 gm/dl (10.1-14.3)
[2021-06-17 13:45] LABS: Erythrocyte Sedimentation Rate 18 mm/Hr (0-20)
== END 2021-06-17 09:40 | disposition home or self-care (01) ==
LOC: PET 09:39
PROVIDERS: ATTEND Internal Medicine Hematology & Oncology
DX: C91.10 Chronic lymphocytic leukemia of B-cell type not having achieved remission (principal); C91.Z0 Other lymphoid leukemia not having achieved remission; D72.820 Lymphocytosis (symptomatic)
CPT/HCPCS: 36415; 78815; 80053; 82607; 82728; 82747; 82962; 83550; 83615; 85027; 85045; 85652; A9552

== ENCOUNTER 2021-06-24 15:44 | Inpatient (IN) | payer BC ==
[2021-06-24] MEDS ORDERED: SODIUM CHLORIDE 0.9% 1000 ML 1,000 ML IV ONE ×2 (16:59→20:30)
--- NOTE | 2021-06-24 17:04 | Emergency Department Report ---
ED Palpitations HPI - General Chief Complaint: Arrhythmia/Palpitations Stated Complaint: HIGH HEART RATE Time Seen by Provider: 06/24/21 16:34 Source: patient Mode of arrival: Ambulatory Limitations: No Limitations - History of Present Illness Initial Comments: 60-year-old female with a past medical history of leukemia, hypertension, and anemia secondary to chemotherapy presents to the hospital with complaints of elevated heart rate since yesterday. Patient states she had shortness of breath with rapid respirations and checked her pulse and it was 144. Since patient has been having intermittent shortness of breath associated with elevated heart rate. Patient only checks her heart rate when she feels short of breath and is unsure what it is when she is asymptomatic over the last 2 days. She denies chest pain, nausea, vomiting, diarrhea, melena or hematochezia. Patient states she is currently on Imbruvica for 20 mg daily chemotherapy pill, allopurinol 300 mg to prevent chemo side effects, iron tablets and vitamin C to prevent chemotherapy related anemia. Patient denies requiring blood transfusion in the past. She denies history of PE/DVT, calf tenderness, or unilateral leg swelling. Patient is vaccinated for COVID including booster PMD: Dr. Rmairez Tar Worker: Dr. Toribio Patient states when she started her treatment her white count was in the 400s and most recently after chemo white count was 34 as of 06/17.. She also had a negative PET scan performed here June 17 - Related Data Home Medications Medication Instructions Recorded Confirmed Last Taken Imbruvica 420 mg PO DAILY 06/24/21 06/24/21 06/24/21 Iron 325 MG 325 mg PO DAILY 06/24/21 06/24/21 06/24/21 Vitamin C with Kalyani Hips 500 mg PO DAILY 06/24/21 06/24/21 06/24/21 allopurinoL 300 mg PO DAILY 06/24/21 06/24/21 06/24/21 Allergies Allergy/AdvReac Type Severity Reaction Status Date / Time Tetanus Vaccines and Toxoid Allergy ANEMIA Verified 11/22/16 10:13 [Tetanus Vaccines & Toxoid] ED Review of Systems ROS: Stated complaint: HIGH HEART RATE Other details as noted in HPI Comment: All other systems reviewed and negative ED Past Medical Hx - Past Medical History Hx Hypertension: Yes Hx Congestive Heart Failure: No Hx Diabetes: No Hx Arthritis: Yes Hx Headaches / Migraines: Yes (MIGRAINES CHILD) Hx Asthma: No Hx COPD: No Hx Tuberculosis: Yes (POSITIVE SKIN TEST,TOOK [place] , NEG CXR) Hx HIV: No - Surgical History Additional Surgical History: hysterectomy, Left knee surgery - Social History Smoking Status: Never Smoker - Medications Home Medications: Home Medications Medication Instructions Recorded Confirmed Last Taken Type Imbruvica 420 mg PO DAILY 06/24/21 06/24/21 06/24/21 History Iron 325 MG 325 mg PO DAILY 06/24/21 06/24/21 06/24/21 History Vitamin C with Kalyani Hips 500 mg PO DAILY 06/24/21 06/24/21 06/24/21 History allopurinoL 300 mg PO DAILY 06/24/21 06/24/21 06/24/21 History ED Physical Exam - General Limitations: No Limitations - Other Other exam information: General: No acute distress Head: Atraumatic Eyes: normal appearance ENT: Moist mucous membranes Neck: Normal appearance, no midline tenderness Chest: Clear to auscultation bilaterally, mild tachypnea CV: Tachycardic regular rhythm Abdomen: Soft, normal bowel sounds, nontender, nondistended, no rebound or guard ing Back: Normal inspection Extremity: Mild trace lower extremity pitting edema. No calf tenderness or leg asymmetry Neuro: Alert O x 3, no facial asymmetry, speech clear, no gross motor sensory deficit Psych: Appropriate behavior Skin: No rash ED Course Vital Signs 06/24/21 06/24/21 06/24/21 15:49 17:49 18:13 Temperature 98.6 F Pulse Rate 147 H 133 H 135 H Respiratory 22 17 15 Rate Blood Pressure 107/66 Blood Pressure 124/95 [Left] O2 Sat by Pulse 98 97 98 Oximetry 06/24/21 06/24/21 06/24/21 18:15 18:31 18:45 Temperature Pulse Rate 141 H 140 H 134 H Respiratory 24 29 H 24 Rate Blood Pressure 124/95 124/95 124/95 Blood Pressure [Left] O2 Sat by Pulse 97 98 98 Oximetry 06/24/21 06/24/21 06/24/21 19:01 19:15 19:30 Temperature Pulse Rate 130 H 129 H 127 H Respiratory 25 H 19 29 H Rate Blood Pressure 124/95 124/95 124/95 Blood Pressure [Left] O2 Sat by Pulse 100 97 100 Oximetry 06/24/21 06/24/21 06/24/21 19:57 20:01 23:40 Temperature Pulse Rate 134 H 132 H 132 H Respiratory 27 H 20 Rate Blood Pressure 135/82 128/75 Blood Pressure [Left] O2 Sat by Pulse 99 99 Oximetry - Consultations Consultation #1: 06/24/21 17:08 As per patient request her PMD was contacted and informed of patient's pending work-up and will be updated regarding result 06/24/21 21:34 case d/w senior solutions workflow consultant Pattern Duplicator dr Garcia, he reviewed EKG and states that arpit ent is exhibiting supraventricular tachycardia. Differential includes Tachycardia versus ectopic atrial focus. Agrees with IV Lopressor. Recommend to start metoprolol 12.5 mg every 6 and titrate up to 25 mg based on blood pressure response 06/24/21 21:[address] Ramirez updated regarding ED work-up results and plan for admission with cardiology consultation for SVT ED Medical Decision Making - Lab Data Result diagrams: 06/24/21 17:30 06/24/21 17:30 Lab Results 06/24/21 06/24/21 06/24/21 Range/Units 17:30 17:30 17:30 WBC 42.4 H* (4.5-11.0) K/mm3 RBC 4.40 (3.65-5.03) M/mm3 Hgb 11.7 (10.1-14.3) gm/dl Hct 39.5 (30.3-42.9) % MCV 90 (79-97) fl MCH 27 L (28-32) pg MCHC 30 (30-34) % RDW 14.5 (13.2-15.2) % Plt Count 226 (140-440) K/mm3 Lymph % (Auto) Pulp Piler Lymph # (Auto) Pulp Piler Add Manual Diff Complete Total Counted 100 Seg Neutrophils % Pulp Piler Seg Neuts % (Manual) 7.0 L (40.0-70.0) % Band Neutrophils % 0 % Lymphocytes % (Manual) 90.0 H (13.4-35.0) % Reactive Lymphs % (Man) 0 % Monocytes % (Manual) 3.0 (0.0-7.3) % Eosinophils % (Manual) 0 (0.0-4.3) % Basophils % (Manual) 0 (0.0-1.8) % Metamyelocytes % 0 % Myelocytes % 0 % Promyelocytes % 0 % Blast Cells % 0 % Nucleated RBC % Not Reportable Seg Neutrophils # Man 3.0 (1.8-7.7) K/mm3 Band Neutrophils # 0.0 K/mm3 Lymphocytes # (Manual) 38.2 H (1.2-5.4) K/mm3 Abs React Lymphs (Man) 0.0 K/mm3 Monocytes # (Manual) 1.3 H (0.0-0.8) K/mm3 Eosinophils # (Manual) 0.0 (0.0-0.4) K/mm3 Basophils # (Manual) 0.0 (0.0-0.1) K/mm3 Metamyelocytes # 0.0 K/mm3 Myelocytes # 0.0 K/mm3 Promyelocytes # 0.0 K/mm3 Blast Cells # 0.0 K/mm3 WBC Morphology Not Reportable Hypersegmented Neuts Not Reportable Hyposegmented Neuts Not Reportable Hypogranular Neuts Not Reportable Smudge Cells Not Reportable Toxic Granulation Not Reportable Toxic Vacuolation Not Reportable Dohle Bodies Not Reportable Pelger-Huet Anomaly Not Reportable Bebe Rods Not Reportable Platelet Estimate Consistent w auto Clumped Platelets Not Reportable Plt Clumps, EDTA Not Reportable Large Platelets Not Reportable Giant Platelets Not Reportable Platelet Satelliting Not Reportable Plt Morphology Comment Not Reportable RBC Morphology Not Reportable Dimorphic RBCs Not Reportable Polychromasia Not Reportable Hypochromasia Not Reportable Poikilocytosis Not Reportable Anisocytosis Not Reportable Microcytosis Not Reportable Macrocytosis Not Reportable Spherocytes Not Reportable Pappenheimer Bodies Not Reportable Sickle Cells Not Reportable Target Cells Not Reportable Tear Drop Cells Not Reportable Ovalocytes Not Reportable Helmet Cells Not Reportable [place] Bodies Not Reportable [place] Rings Not Reportable [place] Cells Not Reportable Bite Cells Not Reportable Crenated Cell Not Reportable Elliptocytes Not Reportable Acanthocytes (Spur) Not Reportable Rouleaux Not Reportable Hemoglobin C Crystals Not Reportable Schistocytes Not Reportable Malaria parasites Not Reportable Efrain Bodies Not Reportable Hem Pathologist Commnt No PT (12.2-14.9) Sec. INR (0.87-1.13) APTT (24.2-36.6) Sec. Sodium 144 (137-145) mmol/L Potassium 3.9 (3.6-5.0) mmol/L Chloride 105.3 (98-107) mmol/L Carbon Dioxide 26 (22-30) mmol/L Anion Gap 17 mmol/L BUN 22 H (7-17) mg/dL Creatinine 1.0 (0.6-1.2) mg/dL Estimated GFR > 60 ml/min BUN/Creatinine Ratio 22 % Glucose 118 H (65-100) mg/dL Lactic Acid (0.7-2.0) mmol/L Calcium 10.1 (8.4-10.2) mg/dL Magnesium 2.00 (1.7-2.3) mg/dL Total Bilirubin 0.30 (0.1-1.2) mg/dL AST 16 (5-40) units/L ALT 20 (7-56) units/L Alkaline Phosphatase 100 (35-129) units/L Total Creatine Kinase (30-135) units/L CK-MB (CK-2) (0.0-4.0) ng/mL CK-MB (CK-2) Rel Index (0-4) Troponin T (0.00-0.029) ng/mL Total Protein 6.9 (6.3-8.2) g/dL Albumin 4.8 (3.9-5) g/dL Albumin/Globulin Ratio 2.3 % TSH 1.940 (0.270-4.200) mlU/mL Free T4 1.43 (0.76-1.46) ng/dL Urine Color (Yellow) Urine Turbidity (Clear) Urine pH (5.0-7.0) Ur Specific [place] (1.003-1.030) Urine Protein (Negative) mg/dL Urine Glucose (UA) (Negative) mg/dL Urine Ketones (Negative) mg/dL Urine Blood (Negative) Urine Nitrite (Negative) Urine Bilirubin (Negative) Urine Urobilinogen (<2.0) mg/dL Ur Leukocyte Esterase (Negative) Urine WBC (Auto) (0.0-6.0) /HPF Urine RBC (Auto) (0.0-6.0) /HPF U Epithel Cells (Auto) (0-13.0) /HPF Urine Mucus /HPF Blood Type Antibody Screen 06/24/21 06/24/21 06/24/21 Range/Units 17:30 17:30 17:30 WBC (4.5-11.0) K/mm3 RBC (3.65-5.03) M/mm3 Hgb (10.1-14.3) gm/dl Hct (30.3-42.9) % MCV (79-97) fl MCH (28-32) pg MCHC (30-34) % RDW (13.2-15.2) % Plt Count (140-440) K/mm3 Lymph % (Auto) Lymph # (Auto) Add Manual Diff Total Counted Seg Neutrophils % Seg Neuts % (Manual) (40.0-70.0) % Band Neutrophils % % Lymphocytes % (Manual) (13.4-35.0) % Reactive Lymphs % (Man) % Monocytes % (Manual) (0.0-7.3) % Eosinophils % (Manual) (0.0-4.3) % Basophils % (Manual) (0.0-1.8) % Metamyelocytes % % Myelocytes % % Promyelocytes % % Blast Cells % % Nucleated RBC % Seg Neutrophils # Man (1.8-7.7) K/mm3 Band Neutrophils # K/mm3 Lymphocytes # (Manual) (1.2-5.4) K/mm3 Abs React Lymphs (Man) K/mm3 Monocytes # (Manual) (0.0-0.8) K/mm3 Eosinophils # (Manual) (0.0-0.4) K/mm3 Basophils # (Manual) (0.0-0.1) K/mm3 Metamyelocytes # K/mm3 Myelocytes # K/mm3 Promyelocytes # K/mm3 Blast Cells # K/mm3 WBC Morphology Hypersegmented Neuts Hyposegmented Neuts Hypogranular Neuts Smudge Cells Toxic Granulation Toxic Vacuolation Dohle Bodies Pelger-Huet Anomaly Bebe Rods Platelet Estimate Clumped Platelets Plt Clumps, EDTA Large Platelets Giant Platelets Platelet Satelliting Plt Morphology Comment RBC Morphology Dimorphic RBCs Polychromasia Hypochromasia Poikilocytosis Anisocytosis Microcytosis Macrocytosis Spherocytes Pappenheimer Bodies Sickle Cells Target Cells Tear Drop Cells Ovalocytes Helmet Cells [place] Bodies [place] Rings Mookie Cells Bite Cells Crenated Cell Elliptocytes Acanthocytes (Spur) Rouleaux Hemoglobin C Crystals Schistocytes Malaria parasites Efrain Bodies Hem Pathologist Commnt PT (12.2-14.9) Sec. INR (0.87-1.13) APTT (24.2-36.6) Sec. Sodium (137-145) mmol/L Potassium (3.6-5.0) mmol/L Chloride (98-107) mmol/L Carbon Dioxide (22-30) mmol/L Anion Gap mmol/L BUN (7-17) mg/dL Creatinine (0.6-1.2) mg/dL Estimated GFR ml/min BUN/Creatinine Ratio % Glucose (65-100) mg/dL Lactic Acid 1.90 (0.7-2.0) mmol/L Calcium (8.4-10.2) mg/dL Magnesium (1.7-2.3) mg/dL Total Bilirubin (0.1-1.2) mg/dL AST (5-40) units/L ALT (7-56) units/L Alkaline Phosphatase (35-129) units/L Total Creatine Kinase 130 (30-135) units/L CK-MB (CK-2) 3.2 (0.0-4.0) ng/mL CK-MB (CK-2) Rel Index 2.4 (0-4) Troponin T (0.00-0.029) ng/mL Total Protein (6.3-8.2) g/dL Albumin (3.9-5) g/dL Albumin/Globulin Ratio % TSH (0.270-4.200) mlU/mL Free T4 (0.76-1.46) ng/dL Urine Color (Yellow) Urine Turbidity (Clear) Urine pH (5.0-7.0) Ur Specific [place] (1.003-1.030) Urine Protein (Negative) mg/dL Urine Glucose (UA) (Negative) mg/dL Urine Ketones (Negative) mg/dL Urine Blood (Negative) Urine Nitrite (Negative) Urine Bilirubin (Negative) Urine Urobilinogen (<2.0) mg/dL Ur Leukocyte Esterase (Negative) Urine WBC (Auto) (0.0-6.0) /HPF Urine RBC (Auto) (0.0-6.0) /HPF U Epithel Cells (Auto) (0-13.0) /HPF Urine Mucus /HPF Blood Type B POSITIVE Antibody Screen Negative 06/24/21 06/24/21 06/24/21 Range/Units 17:30 17:30 20:45 WBC (4.5-11.0) K/mm3 RBC (3.65-5.03) M/mm3 Hgb (10.1-14.3) gm/dl Hct (30.3-42.9) % MCV (79-97) fl MCH (28-32) pg MCHC (30-34) % RDW (13.2-15.2) % Plt Count (140-440) K/mm3 Lymph % (Auto) Lymph # (Auto) Add Manual Diff Total Counted Seg Neutrophils % Seg Neuts % (Manual) (40.0-70.0) % Band Neutrophils % % Lymphocytes % (Manual) (13.4-35.0) % Reactive Lymphs % (Man) % Monocytes % (Manual) (0.0-7.3) % Eosinophils % (Manual) (0.0-4.3) % Basophils % (Manual) (0.0-1.8) % Metamyelocytes % % Myelocytes % % Promyelocytes % % Blast Cells % % Nucleated RBC % Seg Neutrophils # Man (1.8-7.7) K/mm3 Band Neutrophils # K/mm3 Lymphocytes # (Manual) (1.2-5.4) K/mm3 Abs React Lymphs (Man) K/mm3 Monocytes # (Manual) (0.0-0.8) K/mm3 Eosinophils # (Manual) (0.0-0.4) K/mm3 Basophils # (Manual) (0.0-0.1) K/mm3 Metamyelocytes # K/mm3 Myelocytes # K/mm3 Promyelocytes # K/mm3 Blast Cells # K/mm3 WBC Morphology Hypersegmented Neuts Hyposegmented Neuts Hypogranular Neuts Smudge Cells Toxic Granulation Toxic Vacuolation Dohle Bodies Pelger-Huet Anomaly Bebe Rods Platelet Estimate Clumped Platelets Plt Clumps, EDTA Large Platelets Giant Platelets Platelet Satelliting Plt Morphology Comment RBC Morphology Dimorphic RBCs Polychromasia Hypochromasia Poikilocytosis Anisocytosis Microcytosis Macrocytosis Spherocytes Pappenheimer Bodies Sickle Cells Target Cells Tear Drop Cells Ovalocytes Helmet Cells [place] Bodies [place] Rings Mookie Cells Bite Cells Crenated Cell Elliptocytes Acanthocytes (Spur) Rouleaux Hemoglobin C Crystals Schistocytes Malaria parasites Efrain Bodies Hem Pathologist Commnt PT 13.4 (12.2-14.9) Sec. INR 0.92 (0.87-1.13) APTT 24.7 (24.2-36.6) Sec. Sodium (137-145) mmol/L Potassium (3.6-5.0) mmol/L Chloride (98-107) mmol/L Carbon Dioxide (22-30) mmol/L Anion Gap mmol/L BUN (7-17) mg/dL Creatinine (0.6-1.2) mg/dL Estimated GFR ml/min BUN/Creatinine Ratio % Glucose (65-100) mg/dL Lactic Acid 1.40 (0.7-2.0) mmol/L Calcium (8.4-10.2) mg/dL Magnesium (1.7-2.3) mg/dL Total Bilirubin (0.1-1.2) mg/dL AST (5-40) units/L ALT (7-56) units/L Alkaline Phosphatase (35-129) units/L Total Creatine Kinase (30-135) units/L CK-MB (CK-2) (0.0-4.0) ng/mL CK-MB (CK-2) Rel Index (0-4) Troponin T 0.020 (0.00-0.029) ng/mL Total Protein (6.3-8.2) g/dL Albumin (3.9-5) g/dL Albumin/Globulin Ratio % TSH (0.270-4.200) mlU/mL Free T4 (0.76-1.46) ng/dL Urine Color (Yellow) Urine Turbidity (Clear) Urine pH (5.0-7.0) Ur Specific [place] (1.003-1.030) Urine Protein (Negative) mg/dL Urine Glucose (UA) (Negative) mg/dL Urine Ketones (Negative) mg/dL Urine Blood (Negative) Urine Nitrite (Negative) Urine Bilirubin (Negative) Urine Urobilinogen (<2.0) mg/dL Ur Leukocyte Esterase (Negative) Urine WBC (Auto) (0.0-6.0) /HPF Urine RBC (Auto) (0.0-6.0) /HPF U Epithel Cells (Auto) (0-13.0) /HPF Urine Mucus /HPF Blood Type Antibody Screen 06/24/21 Range/Units Unknown WBC (4.5-11.0) K/mm3 RBC (3.65-5.03) M/mm3 Hgb (10.1-14.3) gm/dl Hct (30.3-42.9) % MCV (79-97) fl MCH (28-32) pg MCHC (30-34) % RDW (13.2-15.2) % Plt Count (140-440) K/mm3 Lymph % (Auto) Lymph # (Auto) Add Manual Diff Total Counted Seg Neutrophils % Seg Neuts % (Manual) (40.0-70.0) % Band Neutrophils % % Lymphocytes % (Manual) (13.4-35.0) % Reactive Lymphs % (Man) % Monocytes % (Manual) (0.0-7.3) % Eosinophils % (Manual) (0.0-4.3) % Basophils % (Manual) (0.0-1.8) % Metamyelocytes % % Myelocytes % % Promyelocytes % % Blast Cells % % Nucleated RBC % Seg Neutrophils # Man (1.8-7.7) K/mm3 Band Neutrophils # K/mm3 Lymphocytes # (Manual) (1.2-5.4) K/mm3 Abs React Lymphs (Man) K/mm3 Monocytes # (Manual) (0.0-0.8) K/mm3 Eosinophils # (Manual) (0.0-0.4) K/mm3 Basophils # (Manual) (0.0-0.1) K/mm3 Metamyelocytes # K/mm3 Myelocytes # K/mm3 Promyelocytes # K/mm3 Blast Cells # K/mm3 WBC Morphology Hypersegmented Neuts Hyposegmented Neuts Hypogranular Neuts Smudge Cells Toxic Granulation Toxic Vacuolation Dohle Bodies Pelger-Huet Anomaly Bebe Rods Platelet Estimate Clumped Platelets Plt Clumps, EDTA Large Platelets Giant Platelets Platelet Satelliting Plt Morphology Comment RBC Morphology Dimorphic RBCs Polychromasia Hypochromasia Poikilocytosis Anisocytosis Microcytosis Macrocytosis Spherocytes Pappenheimer Bodies Sickle Cells Target Cells Tear Drop Cells Ovalocytes Helmet Cells [place] Bodies [place] Rings Mookie Cells Bite Cells Crenated Cell Elliptocytes Acanthocytes (Spur) Rouleaux Hemoglobin C Crystals Schistocytes Malaria parasites Efrain Bodies Hem Pathologist Commnt PT (12.2-14.9) Sec. INR (0.87-1.13) APTT (24.2-36.6) Sec. Sodium (137-145) mmol/L Potassium (3.6-5.0) mmol/L Chloride (98-107) mmol/L Carbon Dioxide (22-30) mmol/L Anion Gap mmol/L BUN (7-17) mg/dL Creatinine (0.6-1.2) mg/dL Estimated GFR ml/min BUN/Creatinine Ratio % Glucose (65-100) mg/dL Lactic Acid (0.7-2.0) mmol/L Calcium (8.4-10.2) mg/dL Magnesium (1.7-2.3) mg/dL Total Bilirubin (0.1-1.2) mg/dL AST (5-40) units/L ALT (7-56) units/L Alkaline Phosphatase (35-129) units/L Total Creatine Kinase (30-135) units/L CK-MB (CK-2) (0.0-4.0) ng/mL CK-MB (CK-2) Rel Index (0-4) Troponin T (0.00-0.029) ng/mL Total Protein (6.3-8.2) g/dL Albumin (3.9-5) g/dL Albumin/Globulin Ratio % TSH (0.270-4.200) mlU/mL Free T4 (0.76-1.46) ng/dL Urine Color Yellow (Yellow) Urine Turbidity Clear (Clear) Urine pH 6.0 (5.0-7.0) Ur Specific [place] 1.018 (1.003-1.030) Urine Protein 30 mg/dl (Negative) mg/dL Urine Glucose (UA) Neg (Negative) mg/dL Urine Ketones Neg (Negative) mg/dL Urine Blood Mod (Negative) Urine Nitrite Neg (Negative) Urine Bilirubin Neg (Negative) Urine Urobilinogen < 2.0 (<2.0) mg/dL Ur Leukocyte Esterase Neg (Negative) Urine WBC (Auto) 1.0 (0.0-6.0) /HPF Urine RBC (Auto) 70.0 (0.0-6.0) /HPF U Epithel Cells (Auto) 1.0 (0-13.0) /HPF Urine Mucus Few /HPF Blood Type Antibody Screen - EKG Data -: EKG Interpreted by Me (Narrow complex regular rhythm without P waves/junctional) EKG shows normal: ST-T waves (No STEMI) Rate: tachycardia - Radiology Data Radiology results: report reviewed CT ABDOMEN AND PELVIS WITHOUT CONTRAST INDICATION / CLINICAL INFORMATION: Nausea and vomiting, constipation, acute renal insufficiency. TECHNIQUE: Axial CT images were obtained through the abdomen and pelvis without IV contrast. All CT scans at this location are performed using CT dose reduction for ALARA by means of automated exposure control. COMPARISON: None available. FINDINGS: LOWER CHEST: No significant abnormality. LIVER: No significant abnormality. GALLBLADDER: No significant abnormality. BILE DUCTS: No significant abnormality. PANCREAS: No significant abnormality. SPLEEN: No significant abnormality. ADRENALS: No significant abnormality. RIGHT KIDNEY/URETER: No significant abnormality. LEFT KIDNEY/URETER: A mildly calcified posterior midpole left renal cyst measures up to 4 cm. No other significant abnormality. STOMACH/SMALL BOWEL: No significant abnormality. COLON: The colon contains a large amount of stool without other acute findings. APPENDIX: No significant abnormality. PERITONEUM: No free fluid. No free air. No fluid collection. LYMPH NODES: No significant adenopathy. VASCULATURE: Normal caliber of the aorta with moderate generalized ath erosclerosis. URINARY BLADDER: No significant abnormality. REPRODUCTIVE ORGANS: No significant abnormality. ADDITIONAL FINDINGS: None. BONES: No acute findings. The bones are demineralized with moderate degenerative changes throughout the spine and pelvis. IMPRESSION: 1. No acute findings. 2. Findings compatible with constipation. 3. Additional findings as above. Critical Care Time: No Critical care attestation.: If time is entered above; I have spent that time in minutes in the direct care of this critically ill patient, excluding procedure time. ED Disposition Clinical Impression: Junctional tachycardia, Leukemia Disposition: ADMITTED INPATIENT Is pt being admited?: Yes Condition: Stable Time of Disposition: 21:38
[2021-06-24 17:56] LABS: Mean Corpuscular HGB Conc 30 % (30-34); Mean Corpuscular Volume 90 fl (79-97); Platelet Count 226 K/mm3 (140-440); Red Cell Distribution Width 14.5 % (13.2-15.2)
[2021-06-24 17:59] LABS: Hematocrit 39.5 % (30.3-42.9); Hemoglobin 11.7 gm/dl (10.1-14.3)
[2021-06-24 18:07] LABS: INR 0.92 (0.87-1.13); Partial Thromboplastin Time 24.7 Sec. (24.2-36.6)
--- NOTE | 2021-06-24 18:15 | XRay Report ---
CHEST 2 VIEWS INDICATION / CLINICAL INFORMATION: sob, tachycardia. COMPARISON: None available. FINDINGS: SUPPORT DEVICES: None. HEART / MEDIASTINUM: No significant abnormality. LUNGS / PLEURA: No significant pulmonary or pleural abnormality. No pneumothorax. ADDITIONAL FINDINGS: No significant additional findings. IMPRESSION: 1. No acute findings. Signer Name: Ji Vaughn MD Signed: 06/24/2021 6:10 PM Workstation Name: [id number]
[2021-06-24 18:19] LABS: Alanine Aminotransferase 20 units/L (7-56); Albumin 4.8 g/dL (3.9-5); BUN/Creatinine Ratio 22; Blood Urea Nitrogen 22 mg/dL (7-17); Calcium 10.1 mg/dL (8.4-10.2); Hemolysis Index 2
[2021-06-24 18:23] LABS: Creatine Kinase MB 3.2 ng/mL (0.0-4.0)
[2021-06-24 18:30] LABS: Free T4 (Free Thyroxine) 1.43 ng/dL (0.76-1.46)
[2021-06-24 18:40] LABS: Basophils % (Manual) 0 % (0.0-1.8); Eosinophils % (Manual) 0 % (0.0-4.3); Platelet Estimate Consistent w Auto; Total Cells Counted 100
[2021-06-24 19:47] LABS: Bilirubin,Urine NEG (Negative); Blood,Urine MOD (Negative); Color,Urine Yellow (Yellow); Mucus,Urine FEW /HPF; Urobilinogen,Urine < 2.0 mg/dL (<2.0)
--- NOTE | 2021-06-24 20:55 | Cat Scan Report ---
CTA CHEST WITH IV CONTRAST INDICATION: sob, tachycardia. TECHNIQUE: Axial CT images were obtained through the chest after injection of 100 cc Omnipaque 350 IV contrast. 3 plane MIP reconstructions were produced. All CT scans at this location are performed using CT dose reduction for ALARA by means of automated exposure control. COMPARISON: 2 views of the chest performed today. FINDINGS: PULMONARY ARTERIES: No pulmonary emboli. AORTA AND ARTERIES: No significant abnormality. HEART: No significant abnormality. LYMPH NODES:No significant adenopathy. TRACHEA AND BRONCHI:No significant abnormality. LUNGS: No suspicious consolidation, nodule or mass. No pneumothorax or pleural effusion. ADDITIONAL FINDINGS: None. UPPER ABDOMEN: No acute findings. BONES: No significant osseous abnormality. IMPRESSION: 1. No CT evidence for pulmonary embolism. 2. No acute findings. Signer Name: Mauricio Schwartz MD Signed: 06/24/2021 8:51 PM Workstation Name: [id number]
[2021-06-24] MEDS ORDERED: METOPROLOL TARTRATE 5 MG/5 ML INJ IV ONE ×2 (21:24→23:35)
[2021-06-24] MEDS ORDERED: ACETAMINOPHEN 325 MG TAB PO PRN (22:35)
[2021-06-24] MEDS ORDERED: ONDANSETRON 4 MG/2 ML INJ IV PRN (22:35)
[2021-06-24] MEDS ORDERED: MORPHINE 2 MG/1 ML INJ IV PRN (22:35)
[2021-06-24] MEDS ORDERED: MORPHINE 4 MG/1 ML INJ IV PRN (22:35)
[2021-06-24] MEDS ORDERED: MAGNESIUM HYDROXIDE (MOM) ORAL LIQD UDC PO PRN (22:35)
--- NOTE | 2021-06-24 22:44 | History and Physical Report ---
History of Present Illness Date of examination: 06/24/21 Date of admission: 06/24/2021 Chief complaint: Palpitation History of present illness: 60-year-old female with known history of leukemia on chemotherapy, hypertension and anemia presents to the emergency room today complaining of elevated heart rate. She also indicates that she has been having some associated shortness of breath but denies any chest pain. She denies any fever or chills, no headache or dizziness and no diaphoresis. Patient denies any nausea vomiting, no abdominal pain, no diarrhea. 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 Patient denies any sick contacts and no recent travel. Denies any contact with anyone with COVID-19. Patient is fully vaccinated against COVID-19. Work-up in the emergency room today, significant findings on the labs were that of leukocytosis of 42.4 and a BUN of 21. Chest x-ray shows no acute findings. CT angiogram of the chest was negative for and pulmonary embolism. EKG shows junctional tachycardia. Heart rate was in the 130s to 140s. Global Engineering Manager on-call was consulted by the ER physician. Beta-demetria metoprolol was recommended. Past History Past Medical History: arthritis, hypertension, migraines Past Surgical History: hysterectomy, Other (Left knee surgery) Social history: no significant social history Family history: no significant family history Medications and Allergies Allergies Allergy/AdvReac Type Severity Reaction Status Date / Time Tetanus Vaccines and Toxoid Allergy ANEMIA Verified 11/22/16 10:13 [Tetanus Vaccines & Toxoid] Home Medications Medication Instructions Recorded Confirmed Last Taken Type Imbruvica 420 mg PO DAILY 06/24/21 06/24/21 06/24/21 History Iron 325 MG 325 mg PO DAILY 06/24/21 06/24/21 06/24/21 History Vitamin C with Kalyani Hips 500 mg PO DAILY 06/24/21 06/24/21 06/24/21 History allopurinoL 300 mg PO DAILY 06/24/21 06/24/21 06/24/21 History Review of Systems Constitutional: no fever, no chills Ears, nose, mouth and throat: no nasal congestion, no sore throat Cardiovascular: palpitations, shortness of breath, no chest pain Respiratory: no cough, no congestion, no wheezing Gastrointestinal: no abdominal pain, no nausea, no vomiting, no diarrhea Genitourinary Female: no flank pain, no dysuria, no hematuria Musculoskeletal: no neck pain, no low back pain Integumentary: no rash, no pruritis Neurological: no headaches, no confusion Psychiatric: no anxiety, no depression Endocrine: no polyphagia, no polydipsia, no polyuria, no nocturia Exam - Constitutional Vitals: Temp Pulse Resp BP Pulse Ox 98.6 F 132 H 20 135/82 99 06/24/21 15:49 06/24/21 20:01 06/24/21 20:01 06/24/21 20:01 06/24/21 20:01 General appearance: Present: no acute distress, well-nourished - EENT Eyes: Present: PERRL, EOM intact. Absent: scleral icterus ENT: hearing intact, clear oral mucosa, dentition normal - Neck Neck: Present: supple, normal ROM - Respiratory Respiratory effort: normal Respiratory: bilateral: CTA - Cardiovascular Rhythm: other (Tachycardic) Heart Sounds: Present: S1 & S2. Absent: gallop, systolic murmur, diastolic murmur, rub, click - Extremities Extremities: no ischemia, pulses intact, pulses symmetrical, No edema, normal temperature, normal color, Full ROM Peripheral Pulses: within normal limits - Abdominal General gastrointestinal: Present: soft, non-tender, non-distended, normal bowel sounds. Absent: mass - Integumentary Integumentary: Absent: clear, warm, dry, rash - Musculoskeletal Musculoskeletal: strength equal bilaterally - Psychiatric Psychiatric: appropriate mood/affect, intact judgment & insight, memory intact, cooperative - Neurologic Neurologic: CNII-XII intact, no focal deficits, moves all extremities HEART Score - HEART Score Troponin: Troponin T 0.018 ng/mL (0.00-0.029) 06/24/21 21:39 Results - Labs CBC & Chem 7: 06/24/21 17:30 06/25/21 05:13 Labs: Abnormal lab results 06/24/21 06/24/21 Range/Units 17:30 17:30 WBC 42.4 H* (4.5-11.0) K/mm3 MCH 27 L (28-32) pg Seg Neuts % (Manual) 7.0 L (40.0-70.0) % Lymphocytes % (Manual) 90.0 H (13.4-35.0) % Lymphocytes # (Manual) 38.2 H (1.2-5.4) K/mm3 Monocytes # (Manual) 1.3 H (0.0-0.8) K/mm3 BUN 22 H (7-17) mg/dL Glucose 118 H (65-100) mg/dL Assessment and Plan - Patient Problems (1) Junctional tachycardia Current Visit: Yes Status: Acute Plan to address problem: Patient placed on beta-demetria. Global Engineering Manager has been consulted for further evaluation and recommendations. (2) Leukemia Current Visit: Yes Status: Acute Plan to address problem: Patient currently on chemotherapy. (3) Hyperlipidemia Current Visit: No Status: Chronic Qualifiers: Hyperlipidemia type: unspecified Qualified Code(s): E78.5 - Hyperlipidemia, unspecified Plan to address problem: Will continue routine home medications and monitor lipid profile. (4) Hypertension Current Visit: No Status: Chronic Qualifiers: Hypertension type: essential hypertension Plan to address problem: We will resume routine home medications and monitor vital signs closely. (5) DVT prophylaxis Current Visit: No Status: Acute Plan to address problem: Patient placed on subcutaneous heparin. (6) Full code status Current Visit: Yes Status: Acute Plan to address problem: Patient is a full code.
[2021-06-25 06:32] LABS: BUN/Creatinine Ratio 26; Blood Urea Nitrogen 21 mg/dL (7-17); Calcium 9.2 mg/dL (8.4-10.2); Hemolysis Index 1
--- NOTE | 2021-06-25 09:03 | Progress Note ---
Assessment and Plan Assessment and plan: Junctional tachycardia Leukemia Hyperlipidemia Hypertension DVT prophylaxis 06/25/2021. Patient still with tachycardia. Await cardiology consultation. Check echocardiogram History Interval history: No new issues overnight Hospitalist Physical - Constitutional Vitals: Temp Pulse Resp BP Pulse Ox 98.0 F 127 H 18 120/78 97 06/25/21 03:23 06/25/21 03:23 06/25/21 03:23 06/25/21 03:23 06/25/21 03:23 General appearance: Present: no acute distress, well-nourished - EENT Eyes: Present: PERRL, EOM intact ENT: hearing intact, clear oral mucosa, dentition normal - Neck Neck: Present: supple, normal ROM - Respiratory Respiratory effort: normal Respiratory: bilateral: CTA - Cardiovascular Rhythm: regular Heart Sounds: Present: S1 & S2. Absent: gallop, rub - Extremities Extremities: no ischemia, No edema, Full ROM - Abdominal General gastrointestinal: soft, non-tender, non-distended, normal bowel sounds - Integumentary Integumentary: Present: clear, warm, dry - Neurologic Neurologic: CNII-XII intact, moves all extremities HEART Score - HEART Score Troponin: Troponin T 0.018 ng/mL (0.00-0.029) 06/24/21 21:39 Results - Labs CBC & Chem 7: 06/24/21 17:30 06/25/21 05:13 Labs: Laboratory Last Values WBC 42.4 K/mm3 (4.5-11.0) H* 06/24/21 17:30 RBC 4.40 M/mm3 (3.65-5.03) 06/24/21 17:30 Hgb 11.7 gm/dl (10.1-14.3) 06/24/21 17:30 Hct 39.5 % (30.3-42.9) 06/24/21 17:30 MCV 90 fl (79-97) 06/24/21 17:30 MCH 27 pg (28-32) L 06/24/21 17:30 MCHC 30 % (30-34) 06/24/21 17:30 RDW 14.5 % (13.2-15.2) 06/24/21 17:30 Plt Count 226 K/mm3 (140-440) 06/24/21 17:30 Lymph % (Auto) [place] 06/24/21 17:30 Lymph # (Auto) [place] 06/24/21 17:30 Add Manual Diff Complete 06/24/21 17:30 Total Counted 100 06/24/21 17:30 Seg Neutrophils % [place] 06/24/21 17:30 Seg Neuts % (Manual) 7.0 % (40.0-70.0) L 06/24/21 17:30 Band Neutrophils % 0 % 06/24/21 17:30 Lymphocytes % (Manual) 90.0 % (13.4-35.0) H 06/24/21 17:30 Reactive Lymphs % (Man) 0 % 06/24/21 17:30 Monocytes % (Manual) 3.0 % (0.0-7.3) 06/24/21 17:30 Eosinophils % (Manual) 0 % (0.0-4.3) 06/24/21 17:30 Basophils % (Manual) 0 % (0.0-1.8) 06/24/21 17:30 Metamyelocytes % 0 % 06/24/21 17:30 Myelocytes % 0 % 06/24/21 17:30 Promyelocytes % 0 % 06/24/21 17:30 Blast Cells % 0 % 06/24/21 17:30 Nucleated RBC % Not Reportable 06/24/21 17:30 Seg Neutrophils # Man 3.0 K/mm3 (1.8-7.7) 06/24/21 17:30 Band Neutrophils # 0.0 K/mm3 06/24/21 17:30 Lymphocytes # (Manual) 38.2 K/mm3 (1.2-5.4) H 06/24/21 17:30 Abs React Lymphs (Man) 0.0 K/mm3 06/24/21 17:30 Monocytes # (Manual) 1.3 K/mm3 (0.0-0.8) H 06/24/21 17:30 Eosinophils # (Manual) 0.0 K/mm3 (0.0-0.4) 06/24/21 17:30 Basophils # (Manual) 0.0 K/mm3 (0.0-0.1) 06/24/21 17:30 Metamyelocytes # 0.0 K/mm3 06/24/21 17:30 Myelocytes # 0.0 K/mm3 06/24/21 17:30 Promyelocytes # 0.0 K/mm3 06/24/21 17:30 Blast Cells # 0.0 K/mm3 06/24/21 17:30 WBC Morphology Not Reportable 06/24/21 17:30 Hypersegmented Neuts Not Reportable 06/24/21 17:30 Hyposegmented Neuts Not Reportable 06/24/21 17:30 Hypogranular Neuts Not Reportable 06/24/21 17:30 Smudge Cells Not Reportable 06/24/21 17:30 Toxic Granulation Not Reportable 06/24/21 17:30 Toxic Vacuolation Not Reportable 06/24/21 17:30 Dohle Bodies Not Reportable 06/24/21 17:30 Pelger-Huet Anomaly Not Reportable 06/24/21 17:30 Bebe Rods Not Reportable 06/24/21 17:30 Platelet Estimate Consistent w auto 06/24/21 17:30 Clumped Platelets Not Reportable 06/24/21 17:30 Plt Clumps, EDTA Not Reportable 06/24/21 17:30 Large Platelets Not Reportable 06/24/21 17:30 Giant Platelets Not Reportable 06/24/21 17:30 Platelet Satelliting Not Reportable 06/24/21 17:30 Plt Morphology Comment Not Reportable 06/24/21 17:30 RBC Morphology Not Reportable 06/24/21 17:30 Dimorphic RBCs Not Reportable 06/24/21 17:30 Polychromasia Not Reportable 06/24/21 17:30 Hypochromasia Not Reportable 06/24/21 17:30 Poikilocytosis Not Reportable 06/24/21 17:30 Anisocytosis Not Reportable 06/24/21 17:30 Microcytosis Not Reportable 06/24/21 17:30 Macrocytosis Not Reportable 06/24/21 17:30 Spherocytes Not Reportable 06/24/21 17:30 Pappenheimer Bodies Not Reportable 06/24/21 17:30 Sickle Cells Not Reportable 06/24/21 17:30 Target Cells Not Reportable 06/24/21 17:30 Tear Drop Cells Not Reportable 06/24/21 17:30 Ovalocytes Not Reportable 06/24/21 17:30 Helmet Cells Not Reportable 06/24/21 17:30 [place] Bodies Not Reportable 06/24/21 17:30 [place] Rings Not Reportable 06/24/21 17:30 [place] Cells Not Reportable 06/24/21 17:30 Bite Cells Not Reportable 06/24/21 17:30 Crenated Cell Not Reportable 06/24/21 17:30 Elliptocytes Not Reportable 06/24/21 17:30 Acanthocytes (Spur) Not Reportable 06/24/21 17:30 Rouleaux Not Reportable 06/24/21 17:30 Hemoglobin C Crystals Not Reportable 06/24/21 17:30 Schistocytes Not Reportable 06/24/21 17:30 Malaria parasites Not Reportable 06/24/21 17:30 E[place]rain Bodies Not Reportable 06/24/21 17:30 Hem Pathologist Commnt No 06/24/21 17:30 PT 13.4 Sec. (12.2-14.9) 06/24/21 17:30 INR 0.92 (0.87-1.13) 06/24/21 17:30 APTT 24.7 Sec. (24.2-36.6) 06/24/21 17:30 Sodium 144 mmol/L (137-145) 06/25/21 05:13 Potassium 3.8 mmol/L (3.6-5.0) 06/25/21 05:13 Chloride 106.9 mmol/L (98-107) 06/25/21 05:13 Carbon Dioxide 25 mmol/L (22-30) 06/25/21 05:13 Anion Gap 16 mmol/L 06/25/21 05:13 BUN 21 mg/dL (7-17) H 06/25/21 05:13 Creatinine 0.8 mg/dL (0.6-1.2) 06/25/21 05:13 Estimated GFR > 60 ml/min 06/25/21 05:13 BUN/Creatinine Ratio 26 % 06/25/21 05:13 Glucose 105 mg/dL (65-100) H 06/25/21 05:13 Lactic Acid 1.40 mmol/L (0.7-2.0) 06/24/21 20:45 Calcium 9.2 mg/dL (8.4-10.2) 06/25/21 05:13 Magnesium 2.00 mg/dL (1.7-2.3) 06/24/21 17:30 Total Bilirubin 0.30 mg/dL (0.1-1.2) 06/24/21 17:30 AST 16 units/L (5-40) 06/24/21 17:30 ALT 20 units/L (7-56) 06/24/21 17:30 Alkaline Phosphatase 100 units/L (35-129) 06/24/21 17:30 Total Creatine Kinase 130 units/L (30-135) 06/24/21 17:30 CK-MB (CK-2) 3.2 ng/mL (0.0-4.0) 06/24/21 17:30 CK-MB (CK-2) Rel Index 2.4 (0-4) 06/24/21 17:30 Troponin T 0.018 ng/mL (0.00-0.029) 06/24/21 21:39 Total Protein 6.9 g/dL (6.3-8.2) 06/24/21 17:30 Albumin 4.8 g/dL (3.9-5) 06/24/21 17:30 Albumin/Globulin Ratio 2.3 % 06/24/21 17:30 TSH 1.940 mlU/mL (0.270-4.200) 06/24/21 17:30 Free T4 1.43 ng/dL (0.76-1.46) 06/24/21 17:30 Urine Color Yellow (Yellow) 06/24/21 Unknown Urine Turbidity Clear (Clear) 06/24/21 Unknown Urine pH 6.0 (5.0-7.0) 06/24/21 Unknown Ur Specific [place] 1.018 (1.003-1.030) 06/24/21 Unknown Urine Protein 30 mg/dl mg/dL (Negative) 06/24/21 Unknown Urine Glucose (UA) Neg mg/dL (Negative) 06/24/21 Unknown Urine Ketones Neg mg/dL (Negative) 06/24/21 Unknown Urine Blood Mod (Negative) 06/24/21 Unknown Urine Nitrite Neg (Negative) 06/24/21 Unknown Urine Bilirubin Neg (Negative) 06/24/21 Unknown Urine Urobilinogen < 2.0 mg/dL (<2.0) 06/24/21 Unknown Ur Leukocyte Esterase Neg (Negative) 06/24/21 Unknown Urine WBC (Auto) 1.0 /HPF (0.0-6.0) 06/24/21 Unknown Urine RBC (Auto) 70.0 /HPF (0.0-6.0) 06/24/21 Unknown U Epithel Cells (Auto) 1.0 /HPF (0-13.0) 06/24/21 Unknown Urine Mucus Few /HPF 06/24/21 Unknown Blood Type B POSITIVE 06/24/21 17:30 Antibody Screen Negative 06/24/21 17:30 Microbiology: Microbiology 06/24/21 17:30 Peripheral/Venous Blood Culture - Preliminary Culture in Progress 06/24/21 17:30 Peripheral/Venous Blood Culture - Preliminary Culture in Progress Ng/IV: Voiding Method Toilet Active Medications - Current Medications Current Medications: Generic Name Dose Route Start Last Admin Trade Name Freq PRN Reason Stop Dose Admin Acetaminophen 650 mg 06/24/21 22:35 Acetaminophen 325 Mg Tab PO Q6H PRN Pain MILD(1-3)/Fever >100.5/CAMPBELL Heparin Sodium (Porcine) 5,000 unit 06/25/21 14:00 Heparin 5,000 Unit/1 Ml Vial SUB-Q Q8HR [facility] Magnesium Hydroxide 30 ml 06/24/21 22:35 Magnesium Hydroxide (Mom) Oral Liqd Udc PO Q4H PRN Constipation Metoprolol Tartrate 12.5 mg 06/25/21 08:00 Metoprolol Tartrate 25 Mg Tab PO Q6H [facility] Miscellaneous Medication 300 mg 06/25/21 10:00 Allopurinol PO DAILY [facility] Miscellaneous Medication 420 mg 06/25/21 10:00 Imbruvica PO DAILY [facility] Miscellaneous Medication 325 mg 06/25/21 10:00 Iron 325 Mg PO DAILY [facility] Miscellaneous Medication 500 mg 06/25/21 10:00 Vitamin C With Kalyani Hips PO DAILY [facility] Morphine Sulfate 2 mg 06/24/21 22:35 Morphine 2 Mg/1 Ml Inj IV Q4H PRN Pain, Moderate (4-6) Morphine Sulfate 4 mg 06/24/21 22:35 Morphine 4 Mg/1 Ml Inj IV Q4H PRN Pain , Severe (7-10) Ondansetron HCl 4 mg 06/24/21 22:35 Ondansetron 4 Mg/2 Ml Inj IV Q8H PRN Nausea And Vomiting Sodium Chloride 10 ml 06/25/21 10:00 Sodium Chloride 0.9% 10 Ml Flush Syringe IV BID [facility] Sodium Chloride 10 ml 06/24/21 22:35 Sodium Chloride 0.9% 10 Ml Flush Syringe IV PRN PRN LINE FLUSH
[2021-06-25] MEDS ORDERED: ROSE HIPS PO SCH (10:00)
[2021-06-25] MEDS ORDERED: IMBRUVICA PO SCH (10:00)
[2021-06-25] MEDS ORDERED: [UNRECOGNIZED DRUG - OTHER] PO SCH (10:00)
[2021-06-25] MEDS ORDERED: IRON 325 MG PO SCH (10:00)
[2021-06-25] MEDS ORDERED: ALLOPURINOL PO SCH (10:00)
[2021-06-25] MEDS: FERROUS SULFATE 325 MG TAB PO SCH (11:32)
[2021-06-25] MEDS: ASCORBIC ACID 500 MG TAB PO SCH (11:33)
[2021-06-25] MEDS ORDERED: METOPROLOL TARTRATE 25 MG TAB PO SCH (12:00)
--- NOTE | 2021-06-25 14:46 | Consultation ---
History of Present Illness Consult date: 06/25/21 Requesting physician: AVTAR SAUNDERS Consult reason: other (SVT) History of present illness: Patient is a 60-year-old female with a past medical history of leukemia on chemotherapy and hypertension who presents to the ED with a complaint of increased heart rate. Patient reports that since June 09 she has had 3 episodes of an elevated heart rate trending in the 130s. She states that during each episode she becomes short of breath, lightheaded, anxious, and has palpitations. She denies any chest pain, nausea, vomiting, loss of consciousness, or diaphoresis. Of note EKG shows patient to be in SVT. Patient is previously unknown to our practice. Cardiology is consulted for SVT. Past History Past Medical History: arthritis, hypertension, migraines, other (Leukemia) Past Surgical History: hysterectomy, Other (Left knee surgery) Social history: no significant social history Family history: no significant family history Medications and Allergies Allergies Allergy/AdvReac Type Severity Reaction Status Date / Time Tetanus Vaccines and Toxoid Allergy ANEMIA Verified 11/22/16 10:13 [Tetanus Vaccines & Toxoid] Home Medications Medication Instructions Recorded Confirmed Last Taken Type Imbruvica 420 mg PO DAILY 06/24/21 06/24/21 06/24/21 History Iron 325 MG 325 mg PO DAILY 06/24/21 06/24/21 06/24/21 History Vitamin C with Kalyani Hips 500 mg PO DAILY 06/24/21 06/24/21 06/24/21 History allopurinoL 300 mg PO DAILY 06/24/21 06/24/21 06/24/21 History Active Meds: Active Medications Acetaminophen (Acetaminophen 325 Mg Tab) 650 mg PO Q6H PRN PRN Reason: Pain MILD(1-3)/Fever >100.5/[facility] Allopurinol (Allopurinol 300 Mg Tab) 300 mg PO QDAY [facility] Ascorbic Acid (Ascorbic Acid 500 Mg Tab) 500 mg PO QDAY [facility] Diltiazem HCl (Diltiazem 30 Mg Tab) 30 mg PO Q8HR [facility] Ferrous Sulfate (Ferrous Sulfate 325 Mg Tab) 325 mg PO DAILY [facility] Heparin Sodium (Porcine) (Heparin 5,000 Unit/1 Ml Vial) 5,000 unit SUB-Q Q8HR [facility] Magnesium Hydroxide (Magnesium Hydroxide (Mom) Oral Liqd Udc) 30 ml PO Q4H PRN PRN Reason: Constipation Miscellaneous Medication (Imbruvica) 420 mg PO DAILY [facility] Morphine Sulfate (Morphine 2 Mg/1 Ml Inj) 2 mg IV Q4H PRN PRN Reason: Pain, Moderate (4-6) Morphine Sulfate (Morphine 4 Mg/1 Ml Inj) 4 mg IV Q4H PRN PRN Reason: Pain , Severe (7-10) Ondansetron HCl (Ondansetron 4 Mg/2 Ml Inj) 4 mg IV Q8H PRN PRN Reason: Nausea And Vomiting Sodium Chloride (Sodium Chloride 0.9% 10 Ml Flush Syringe) 10 ml IV BID [place] Sodium Chloride (Sodium Chloride 0.9% 10 Ml Flush Syringe) 10 ml IV PRN PRN PRN Reason: LINE FLUSH Review of Systems Constitutional: no weight loss, no weight gain, no fever, no chills Ears, nose, mouth and throat: no nasal congestion, no nasal discharge, no sinus pressure Cardiovascular: palpitations, rapid/irregular heart beat, lightheadedness, shortness of breath, no chest pain Respiratory: shortness of breath, no cough, no congestion, no wheezing Gastrointestinal: no abdominal pain, no nausea, no vomiting Musculoskeletal: no neck stiffness, no neck pain, no shooting arm pain, no arm numbness/tingling Integumentary: no rash, no pruritis, no redness Neurological: no head injury, no transient paralysis, no paralysis Psychiatric: anxiety, no memory loss Endocrine: no cold intolerance, no heat intolerance Hematologic/Lymphatic: no easy bruising, no easy bleeding Physical Examination Vital Signs Temp Pulse Resp BP Pulse Ox 98.6 F 147 H 22 107/66 98 06/24/21 15:49 06/24/21 15:49 06/24/21 15:49 06/24/21 15:49 06/24/21 15:49 General appearance: no acute distress HEENT: Positive: PERRL Cardiac: Positive: Reg Rate and Rhythm Lungs: Positive: Normal Breath Sounds Neuro: Positive: Grossly Intact Abdomen: Positive: Soft Skin: Negative: Rash, Suspicious Lesions, Ulceration Extremities: Present: upper extr. pulses. Absent: edema Results 06/24/21 17:30 06/25/21 05:13 Cardiac Enzymes 06/24/21 06/24/21 Range/Units 17:30 17:30 AST 16 (5-40) units/L CK-MB (CK-2) 3.2 (0.0-4.0) ng/mL Coagulation 06/24/21 Range/Units 17:30 PT 13.4 (12.2-14.9) Sec. INR 0.92 (0.87-1.13) APTT 24.7 (24.2-36.6) Sec. CBC 06/24/21 Range/Units 17:30 WBC 42.4 H* (4.5-11.0) K/mm3 RBC 4.40 (3.65-5.03) M/mm3 Hgb 11.7 (10.1-14.3) gm/dl Hct 39.5 (30.3-42.9) % Plt Count 226 (140-440) K/mm3 Lymph # (Auto) Care Administrative Tech Comprehensive Metabolic Panel 06/24/21 06/25/21 Range/Units 17:30 05:13 Sodium 144 144 (137-145) mmol/L Potassium 3.9 3.8 (3.6-5.0) mmol/L Chloride 105.3 106.9 (98-107) mmol/L Carbon Dioxide 26 25 (22-30) mmol/L BUN 22 H 21 H (7-17) mg/dL Creatinine 1.0 0.8 (0.6-1.2) mg/dL Glucose 118 H 105 H (65-100) mg/dL Calcium 10.1 9.2 (8.4-10.2) mg/dL AST 16 (5-40) units/L ALT 20 (7-56) units/L Alkaline Phosphatase 100 (35-129) units/L Total Protein 6.9 (6.3-8.2) g/dL Albumin 4.8 (3.9-5) g/dL - Imaging and Cardiology Echo: report reviewed EKG interpretations - Telemetry EKG Rhythm: SVT - EKG Sinus rhythms and dysrhythmias: sinus rhythm Assessment and Plan Patient is a 60-year-old female with a past medical history of leukemia on chemotherapy and hypertension who presents to the ED with a complaint of increased heart rate. SVT HTN Leukemia Echo 06/24/2021-EF 55 to 60%, mild diastolic dysfunction is present impaired relaxation pattern. Right ventricular systolic function is normal. No p ericardial effusion Plan: EKG shows SVT 139 no acute ischemic changes. Troponin negative x2 patient denies chest pain. AMI ruled out Patient sinus 60s however patient had episode of SVT into the 140s overnight Patient currently on metoprolol 25 every 6 hour. Stop metoprolol convert to Cardizem 30 mg p.o. 3 times daily. Continue to monitor Repeat EKG and pending Patient may need outpatient ablation Patient seen in conjunction with Dr. Varma who agrees with this plan of care - Patient Problems (1) SVT (supraventricular tachycardia) Current Visit: Yes Status: Acute (2) Leukemia Current Visit: Yes Status: Acute (3) History of total left knee replacement Current Visit: No Status: Acute (4) Hyperlipidemia Current Visit: No Status: Chronic Qualifiers: Hyperlipidemia type: unspecified Qualified Code(s): E78.5 - Hyperlipidemia, unspecified (5) Hypertension Current Visit: No Status: Chronic Qualifiers: Hypertension type: essential hypertension
[2021-06-25] MEDS: HEPARIN 5,000 UNIT/1 ML VIAL SUB-Q SCH ×2 (14:53→21:42)
[2021-06-25] MEDS: allopurinoL 300 MG TAB PO SCH (17:33)
[2021-06-25] MEDS: dilTIAZem 30 MG TAB PO SCH ×2 (17:33→21:41)
[2021-06-26] MEDS: HEPARIN 5,000 UNIT/1 ML VIAL SUB-Q SCH (06:53)
[2021-06-26] MEDS: dilTIAZem 30 MG TAB PO SCH (06:53)
--- NOTE | 2021-06-26 08:46 | Discharge Summary ---
Providers - Providers Date of Admission: 06/25/21 14:30 Date of discharge: 06/26/21 Attending physician: MELE BURRELL 06/24/21 21:31 Consult to Physician [CONS] Urgent Comment: Dr. Gonzalez spoke with Dr. Nieto @ [id number] Consulting Provider: SIDNEY NIETO Physician Instructions: Reason For Exam: svt, junctional tachycardia 06/24/21 22:36 Consult to Dietitian/Nutrition [CONS] Routine Physician Instructions: Reason For Exam: Reason for Consult: Diet education Primary care physician: RETAIL SALESPERSON Hospitalization Reason for admission: SVT Condition: Stable Hospital course: 60-year-old female with past medical history of leukemia on chemotherapy and hypertension who presented through the emergency department with complaints of increased heart rate. Patient reported that since June 09 she has had 3 episodes of an elevated heart rate with associated symptoms of dyspnea, lightheadedness, anxiety and palpitations. Patient denies any chest pain. EKG revealed SVT. Patient was admitted with diagnosis of SVT, leukemia, hyperlipidemia, hypertension. Patient was seen by cardiology in consultation and initially treated with metoprolol which was later changed to Cardizem. Patient's heart rate stabilized with Cardizem and patient remained in normal sinus rhythm. Cardiology saw the patient in consultation and reports patient may need outpatient ablation. Patient otherwise stable and will be discharged home. Dedicated discharge time 32 minutes. Patient is to follow-up with [facility]ology for possible ablation Disposition: 01 HOME / SELF CARE / HOMELESS Final Discharge Diagnosis (Prints w/discharge instructions): SVT, hypertension, leukemia Core Measure Documentation - Palliative Care Palliative Care/ Comfort Measures: Not Applicable - Core Measures Any of the following diagnoses?: none Exam - Constitutional Vitals: Temp Pulse Resp BP Pulse Ox 97.4 F L 61 16 129/71 98 06/26/21 04:57 06/26/21 04:57 06/26/21 04:57 06/26/21 04:57 06/26/21 04:57 General appearance: Present: no acute distress, well-nourished - EENT Eyes: Present: PERRL ENT: hearing intact, clear oral mucosa - Neck Neck: Present: supple, normal ROM - Respiratory Respiratory effort: normal Respiratory: bilateral: CTA - Cardiovascular Heart Sounds: Present: S1 & S2. Absent: rub, click - Extremities Extremities: pulses symmetrical, No edema Peripheral Pulses: within normal limits - Abdominal General gastrointestinal: Present: soft, non-tender, non-distended, normal bowel sounds Female genitourinary: Present: normal - Integumentary Integumentary: Present: clear, warm, dry - Musculoskeletal Musculoskeletal: gait normal, strength equal bilaterally - Psychiatric Psychiatric: appropriate mood/affect, intact judgment & insight - Neurologic Neurologic: CNII-XII intact, moves all extremities Plan Activity: advance as tolerated Weight Bearing Status: Weight Bear as Tolerated Diet: regular Follow up with: PRIMARY CARE, [Primary Care Provider] - 7 Days NERIS PRADHAN MD [Staff Physician] - 7 Days Prescriptions: dilTIAZem [Cardizem] 30 mg PO Q8HR #90 tablet
[2021-06-26] MEDS: ASCORBIC ACID 500 MG TAB PO SCH (10:13)
[2021-06-26] MEDS: FERROUS SULFATE 325 MG TAB PO SCH (10:13)
[2021-06-26] MEDS: allopurinoL 300 MG TAB PO SCH (10:13)
[2021-06-26 12:50] VITALS: BP 132/60
--- NOTE | 2021-06-26 16:53 | Progress Note ---
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 No further breakthrough episodes on Cardizem. Continue PO Cardizem 30mg q8h. Currently stable cardiac status. Plan for Holter monitor as an outpatient. Follow-up with Dr. Liu Varma in 1-2 weeks ([phone]). May benefit also from outpatient EP eval. Pt seen in conjunction with Dr. Reyna, who agrees with the assessment and plan of care. - Patient Problems (1) SVT (supraventricular tachycardia) Current Visit: Yes Status: Acute (2) Leukemia Current Visit: Yes Status: Chronic Subjective Date of service: 06/26/21 Principal diagnosis: SVT Interval history: No cardiac complaints. Tele reviewed - SR 60-70s, no further SVT or other arrhythmias. Objective Last Vital Signs Temp 98.2 F 06/26/21 12:11 Pulse 58 L 06/26/21 12:11 Resp 18 06/26/21 12:11 BP 132/60 06/26/21 12:11 Pulse Ox 98 06/26/21 12:11 - Physical Examination General: No Apparent Distress HEENT: Positive: EOMI, Normocephaly Neck: Positive: neck supple, trachea midline. Negative: JVD/HJR Cardiac: Positive: Reg Rate and Rhythm, S1/S2 Lungs: Positive: clear to auscultation Neuro: Positive: Grossly Intact Abdomen: Positive: Soft Skin: Negative: Rash Musculoskeletal: No Pain Extremities: Present: lower extr. pulses. Absent: edema - Imaging and Cardiology EKG: report reviewed, image reviewed Echo: report reviewed - Telemetry EKG Rhythm: Sinus Rhythm - EKG Supraventricular dysrhythmia: ectopic atrial tachycardi
== END 2021-06-26 20:29 | disposition home or self-care (01) | DRG 309 ==
LOC: ED 15:44 → 4A 22:36 → OBSVTOIN 06-25 14:30
PROVIDERS: ADMIT Internal Medicine Geriatric Medicine; ATTEND Hospitalist
DX: I47.1 Supraventricular tachycardia (principal); C95.90 Leukemia, unspecified not having achieved remission; E78.5 Hyperlipidemia, unspecified; I10 Essential (primary) hypertension; G43.909 Migraine, unspecified, not intractable, without status migrainosus; Z90.710 Acquired absence of both cervix and uterus; M19.90 Unspecified osteoarthritis, unspecified site; Z88.7 Allergy status to serum and vaccine
CPT/HCPCS: 36415; 71046; 71275; 80048; 80053; 81001; 82140; 82550; 82553; 83735; 84439; 84443; 84484; 85007; 85025; 85610; 85730; 86850; 86900; 86901; 87040; 93005; 93010; 93306; G0378; J9280; Q0162; J1644; J7030; Q9967

== ENCOUNTER 2021-07-12 12:13 | Emergency (ER) | payer BC ==
[2021-07-12] MEDS ORDERED: dilTIAZem 25 MG/5 ML INJ IV ONE ×2 (12:44→13:28)
[2021-07-12] MEDS ORDERED: MORPHINE 4 MG/1 ML INJ IV ONE (12:45)
--- NOTE | 2021-07-12 12:45 | Emergency Department Report ---
ED General Adult HPI - General Chief complaint: Arrhythmia/Palpitations Stated complaint: HIGH HEART RATE PUI?: No Time Seen by Provider: 07/12/21 12:22 Source: patient, RN notes reviewed, old records reviewed Mode of arrival: Ambulatory Limitations: No Limitations - History of Present Illness Initial comments: The patient was evaluated in the emergency department for symptoms described in the history of present illness. He/she was evaluated in the context of the global COVID-19 pandemic, which necessitated consideration that the patient might be at risk for infection with the virus that causes COVID-19. Institutional protocols and algorithms that pertain to the evaluation of patients at risk for COVID-19 are in a state of rapid change based on information released by regulatory bodies including the CDC and federal and state organizations. These policies and algorithms were followed during the patient's care in the emergency department. Please note that these policies, procedures and recommendations changed on a rapid basis. Cardiology: [facility] cardiology This is a 60-year-old female. She has a history of SVT, and is supposed to be maintained on Cardizem, 30 mg every 8 hours. She also has a history of leukemia, and is currently receiving chemotherapy at [facility]. The patient was recently admitted to the medical service with a complaint of SVT. While in the emergency room, she had a CTA chest which was negative for acute findings, and patient was started on Cardizem and subsequently stabilized. She was admitted to the hospital and seen by cardiology. Please see her recent discharge summary. She reports that she has been compliant with her Cardizem, and reports that she has been receiving chemotherapy at [facility]. She reports that for the past few days, she has been feeling sensation of fast heartbeat. She reports that she had an outpatient conveyor monitor applied, and subsequently discontinued by her cardiology team. She recently saw her finish inspector today, and was found to be tachycardic, and was thus referred to the emergency room for definitive management. The patient complains of painless heart racing and tachycardia. She denies chest pain, and denies new/different shortness of breath. She denies dysuria. She denies fevers and chills. She denies physical pain with the exception of nontraumatic right ankle pain and swelling. She reports that to the best of her knowledge, she does not have a history of gout. In the emergency room, the patient is found to be in SVT, with a rate of 155 bpm. She was given 15 mg of diltiazem intravenously, then converted to a sinus rhythm, at 64 bpm. She had an x-ray of the chest which was negative for acute findings, and a lower extremity DVT study which was negative for DVT. Right ankle x-ray showed an effusion. The patient reports marked improvement in her symptoms after pain medicine for her ankle pain, and diltiazem administration for her SVT -: Gradual, days(s) Location: right, lower extremity Severity scale (0 -10): 0 Quality: aching Improves with: medication Worsens with: movement - Related Data Home Medications Medication Instructions Recorded Confirmed Last Taken Imbruvica 420 mg PO DAILY 06/24/21 06/24/21 06/24/21 Iron 325 MG 325 mg PO DAILY 06/24/21 06/24/21 06/24/21 Vitamin C with Kalyani Hips 500 mg PO DAILY 06/24/21 06/24/21 06/24/21 allopurinoL 300 mg PO DAILY 06/24/21 06/24/21 06/24/21 Previous Rx's Medication Instructions Recorded Last Taken Type Ascorbic Acid [Vitamin C] 500 mg PO QDAY tablet 06/26/21 Unknown Rx Ferrous Sulfate [Feosol 325 MG tab] 325 mg PO DAILY tablet 06/26/21 Unknown Rx allopurinoL [Zyloprim] 300 mg PO QDAY tablet 06/26/21 Unknown Rx dilTIAZem [Cardizem] 60 mg PO TID #90 tablet 07/12/21 Unknown Rx Allergies Allergy/AdvReac Type Severity Reaction Status Date / Time Tetanus Vaccines and Toxoid Allergy ANEMIA Verified 07/12/21 12:24 [Tetanus Vaccines & Toxoid] ED Review of Systems ROS: Stated complaint: HIGH HEART RATE Other details as noted in HPI Constitutional: denies: fever Eyes: denies: eye discharge ENT: denies: congestion Respiratory: denies: wheezing Cardiovascular: palpitations. denies: chest pain Gastrointestinal: denies: abdominal pain, nausea, vomiting, diarrhea Genitourinary: denies: dysuria Musculoskeletal: joint swelling, arthralgia, myalgia Neurological: weakness Hematological/Lymphatic: denies: easy bleeding ED Past Medical Hx - Past Medical History Hx Hypertension: Yes Hx Congestive Heart Failure: No Hx Diabetes: No Hx Arthritis: Yes Hx Headaches / Migraines: Yes (MIGRAINES CHILD) Hx Asthma: No Hx COPD: No Hx Tuberculosis: Yes (POSITIVE SKIN TEST,TOOK TX , NEG CXR) Hx HIV: No - Surgical History Additional Surgical History: hysterectomy, Left knee surgery - Social History Smoking Status: Never Smoker - Medications Home Medications: Home Medications Medication Instructions Recorded Confirmed Last Taken Type Imbruvica 420 mg PO DAILY 06/24/21 06/24/21 06/24/21 History Iron 325 MG 325 mg PO DAILY 06/24/21 06/24/21 06/24/21 History Vitamin C with Kalyani Hips 500 mg PO DAILY 06/24/21 06/24/21 06/24/21 History allopurinoL 300 mg PO DAILY 06/24/21 06/24/21 06/24/21 History Ascorbic Acid [Vitamin C] 500 mg PO QDAY tablet 06/26/21 Unknown Rx Ferrous Sulfate [Feosol 325 MG tab] 325 mg PO DAILY tablet 06/26/21 Unknown Rx allopurinoL [Zyloprim] 300 mg PO QDAY tablet 06/26/21 Unknown Rx dilTIAZem [Cardizem] 60 mg PO TID #90 tablet 07/12/21 Unknown Rx ED Physical Exam - General Limitations: No Limitations General appearance: alert, anxious, obese - Head Head exam: Present: atraumatic, normocephalic - Eye Eye exam: Present: normal appearance, EOMI. Absent: nystagmus - ENT ENT exam: Present: normal exam, normal orophraynx, mucous membranes moist, normal external ear exam - Neck Neck exam: Present: normal inspection, full ROM. Absent: tenderness, meningismus - Respiratory Respiratory exam: Present: decreased breath sounds. Absent: respiratory distress, wheezes, rhonchi, stridor - Cardiovascular Cardiovascular Exam: Present: tachycardia, irregular rhythm. Absent: bradycardia, systolic murmur, diastolic murmur, rubs, gallop - GI/Abdominal GI/Abdominal exam: Present: soft. Absent: distended, tenderness, guarding, rebound, rigid, pulsatile mass - Extremities Exam Extremities exam: Present: normal inspection, full ROM, tenderness (There is right ankle tenderness), pedal edema (Bilateral lower extremity), other (There is no palpable cord. 2+ pulses noted in the bilateral upper and lower extremities. There is no long bony tenderness. The right ankle is tender without redness, pus or streaking. Range of motion is intact in the right ankle). Absent: calf tenderness - Back Exam Back exam: Present: normal inspection, full ROM. Absent: tenderness, CVA tenderness (R), CVA tenderness (L), paraspinal tenderness, vertebral tenderness - Neurological Exam Neurological exam: Present: alert, oriented X3, normal gait, other (No facial droop. Tongue midline. Extraocular movements intact bilaterally. Facial sensation intact to light touch in V1, V2, V3 distribution bilaterally. 5 and a 5 strength in 4 extremities. Sensation intact to light touch in 4 extremities.). Absent: motor sensory deficit - Psychiatric Psychiatric exam: Present: anxious - Skin Skin exam: Present: warm, dry, intact, normal color. Absent: rash ED Course Vital Signs 07/12/21 07/12/21 07/12/21 12:21 13:05 14:28 Temperature 98.2 F 97.9 F Pulse Rate 158 H 144 H 62 Respiratory 16 18 Rate Blood Pressure 108/75 Blood Pressure 116/76 117/58 [Right] O2 Sat by Pulse 100 100 Oximetry - Reevaluation(s) Reevaluation #1: 07/12/21 14:34 Differential diagnosis, including but not limited to: Tumor lysis syndrome, arthritis, electrolyte derangement, pneumonia, urinary tract infection, thyroid derangement, SVT Arthritis, DVT Assessment and plan: 60-year-old female who was initially afebrile with reassuring vital signs with exception of tachycardia, with SVT. Tachycardia is terminated with diltiazem 15 mg IV x1. She also has concomitant right ankle pain and swelling. X-ray shows no fracture or dislocation, but effusion. There is no redness, pus or streaking, and while the ankle is somewhat warm and tender, range of motion is intact, and she is able to weight-bear and ambulate. Septic joint is unlikely. Given return arrhythmia, arthritis, receiving chemotherapy, concern for tumor lysis syndrome. Appropriate laboratory studies ordered. X-ray of the chest negative for acute findings, and right lower extremity DVT study negative. Patiently recently ruled out for PE at this hospital during her recent hospitalization with a negative CTA chest. She will be given IV fluids, and we will also give oral diltiazem. We will reassess after her laboratory studies have resulted. I discussed this with the patient. She is agreeable to this plan of care. Leukocytosis is likely secondary to chronic leukemia 07/12/21 16:10 Patient reassessed multiple times. Her laboratory studies are not consistent with tumor lysis syndrome. She is appropriately rate controlled with a heart rate in the 60s at this time. She is hemodynamically stable. Urinalysis and chest x-ray nonactionable. Contacted cardiology on-call for the patient's primary finish inspector, RAMANDEEP Martínez Discussed the patients history, physical, laboratory studies imaging studies and clinical impression. He advises that we increase patient's diltiazem to 60 mg every 8 hours. Patient may follow-up with her outpatient finish inspector. I discussed this with the patient who articulated understanding. Patient also gave consent for the details of her medical care to be discussed with her , who is currently a security employee at this department. ED Medical Decision Making - Lab Data Result diagrams: 07/12/21 14:03 07/12/21 14:03 Vital Signs 07/12/21 07/12/21 12:21 13:05 Temperature 98.2 F Pulse Rate 158 H 144 H Respiratory 16 Rate Blood Pressure 108/75 Blood Pressure 116/76 [Right] O2 Sat by Pulse 100 Oximetry Lab Results 07/12/21 Range/Units 14:03 WBC 30.3 H (4.5-11.0) K/mm3 RBC 4.26 (3.65-5.03) M/mm3 Hgb 11.6 (10.1-14.3) gm/dl Hct 37.7 (30.3-42.9) % MCV 89 (79-97) fl MCH 27 L (28-32) pg MCHC 31 (30-34) % RDW 14.6 (13.2-15.2) % Plt Count 188 (140-440) K/mm3 Lymph % (Auto) Resident Care Manager Rn Lymph # (Auto) Resident Care Manager Rn Seg Neutrophils % Resident Care Manager Rn - EKG Data -: EKG Interpreted by Me EKG shows normal: sinus rhythm Rate: normal - EKG Data 07/12/21 14:34 The EKG is interpreted at 13: 29 Sinus rhythm, rate 64 bpm. Normal axis, normal P wave axis, FL interval 200 ms. QTc 4 2 4 ms. This EKG is abnormal. This EKG is not a STEMI. When compared to prior EKG from June 24, 2021, SVT has resolved. This is not a STEMI - Radiology Data Radiology results: pending, report reviewed, image reviewed DUPLEX DOPPLER LOWER EXTREMITY VEINS, RIGHT INDICATION / CLINICAL INFORMATION: right leg pain. TECHNIQUE: Duplex doppler imaging was performed through the veins of the right lower extremity using venous compression and other maneuvers. COMPARISON: None available. FINDINGS: RIGHT COMMON FEMORAL VEIN: Negative. RIGHT FEMORAL VEIN: Negative. RIGHT POPLITEAL VEIN: Negative. RIGHT CALF VEINS: Negative. ADDITIONAL FINDINGS: None. IMPRESSION: 1. No sonographic evidence for DVT in the right lower extremity. Signer Name: Mitchell Mi MD Signed: 07/12/2021 12:44 PM Workstation Name: [id number] Right ankle 3 views INDICATION: Ankle pain FINDINGS: Advanced degenerative change within the ankle. Severe joint space narrowing with osteophytes Joint space. Diffuse soft tissue swelling seen throughout. There is pes planus deformity with loss of normal arch. Advanced degenerative change of the tibiotalar joint anteriorly. There is abnormal appearance of the anterior talar neck and anterior process. Degenerative change in the talonavicular joint. Large joint effusion is seen. IMPRESSION: Abnormal appearance of the ankle joint space. The joint space narrowing and diffuse soft tissue swelling and bony irregularities have progressed since prior examination 2019. Findings could represent inflammatory arthropathy or possibly posttraumatic change. Clinical correlation. Signer Name: Ji Vaughn MD Signed: 07/12/2021 12:24 PM Workstation Name: [id number] 1 VIEW 07/12/2021 12:19 PM INDICATION / CLINICAL INFORMATION: Dysrhythmia. COMPARISON: Chest x-ray on 06/24/2021 FINDINGS: SUPPORT DEVICES: None. HEART / MEDIASTINUM: No significant abnormality. LUNGS / PLEURA: No significant pulmonary or pleural abnormality. No pneumothorax. ADDITIONAL FINDINGS: No significant additional findings. IMPRESSION: 1. No acute findings. Signer Name: Mitchell Mi MD Signed: 07/12/2021 12:23 PM Workstation Name: [id number] Critical Care Time: Yes Critical care time in (mins) excluding proc time.: 45 Critical care attestation.: If time is entered above; I have spent that time in minutes in the direct care of this critically ill patient, excluding procedure time. ED Disposition Clinical Impression: SVT (supraventricular tachycardia), Leukemia, Right ankle pain, Right ankle effusion, Body mass index between 30-39, adult Disposition: 01 HOME / SELF CARE / HOMELESS Is pt being admited?: No Does the pt Need Aspirin: No Condition: Good Additional Instructions: Please continue current outpatient medications. Please note that diltiazem has been changed, to 60 mg every 8 hours. Recommend follow-up with your finish inspector within the next week. Weightbearing as tolerated, with the right lower extremity, alternate [id number] ibuprofen and acetaminophen as needed for physical pain. Follow-up with your primary care doctor or an outpatient orthopedist for right ankle pain and effusion within the next 7 to 10 days. Please follow-up with your outpatient oncologist as scheduled. Please return to the emergency room right away with new pain, worsened pain, migration of pain, projectile vomiting, change in mental status, confusion, inability tolerate liquid feeds, new, worsened or different symptoms not present on the initial emergency room evaluation Prescriptions: dilTIAZem [Cardizem] 60 mg PO TID #90 tablet Referrals: [facility] [Provider Group] - 7-10 days Forms: Work/School Release Form(ED)
--- NOTE | 2021-07-12 13:27 | XRay Report ---
CHEST 1 VIEW 07/12/2021 12:19 PM INDICATION / CLINICAL INFORMATION: Dysrhythmia. COMPARISON: Chest x-ray on 06/24/2021 FINDINGS: SUPPORT DEVICES: None. HEART / MEDIASTINUM: No significant abnormality. LUNGS / PLEURA: No significant pulmonary or pleural abnormality. No pneumothorax. ADDITIONAL FINDINGS: No significant additional findings. IMPRESSION: 1. No acute findings. Signer Name: Mitchell Mi MD Signed: 07/12/2021 1:23 PM Workstation Name: [id number]
--- NOTE | 2021-07-12 13:28 | XRay Report ---
Right ankle 3 views INDICATION: Ankle pain FINDINGS: Advanced degenerative change within the ankle. Severe joint space narrowing with osteophyte s Joint space. Diffuse soft tissue swelling seen throughout. There is pes planus deformity with loss of normal arch. Advanced degenerative change of the tibiotalar joint anteriorly. There is abnormal appearance of the anterior talar neck and anterior process. Degenerative change in the talonavicular joint. Large joint effusion is seen. IMPRESSION: Abnormal appearance of the ankle joint space. The joint space narrowing and diffuse soft tissue swell ing and bony irregularities have progressed since prior examination 2019. Findings could represent in flammatory arthropathy or possibly posttraumatic change. Clinical correlation. Signer Name: Ji Vaughn MD Signed: 07/12/2021 1:24 PM Workstation Name: [email or web address]
[2021-07-12] MEDS ORDERED: LACTATED RINGERS 500 ML IV ONE (13:31)
--- NOTE | 2021-07-12 13:49 | Vascular Lab Report ---
DUPLEX DOPPLER LOWER EXTREMITY VEINS, RIGHT INDICATION / CLINICAL INFORMATION: right leg pain. TECHNIQUE: Duplex doppler imaging was performed through the veins of the right lower extremity using venous comp ression and other maneuvers. COMPARISON: None available. FINDINGS: RIGHT COMMON FEMORAL VEIN: Negative. RIGHT FEMORAL VEIN: Negative. RIGHT POPLITEAL VEIN: Negative. RIGHT CALF VEINS: Negative. ADDITIONAL FINDINGS: None. IMPRESSION: 1. No sonographic evidence for DVT in the right lower extremity. Signer Name: Mitchell Mi MD Signed: 07/12/2021 1:44 PM Workstation Name: [id number]
[2021-07-12 14:28] LABS: Hematocrit 37.7 % (30.3-42.9); Hemoglobin 11.6 gm/dl (10.1-14.3); Mean Corpuscular HGB Conc 31 % (30-34); Mean Corpuscular Volume 89 fl (79-97); Platelet Count 188 K/mm3 (140-440); Red Blood Count 4.26 M/mm3 (3.65-5.03); Red Cell Distribution Width 14.6 % (13.2-15.2)
[2021-07-12] MEDS ORDERED: dilTIAZem 30 MG TAB PO ONE (14:31)
[2021-07-12 14:37] LABS: Partial Thromboplastin Time 24.6 Sec. (24.2-36.6)
[2021-07-12 14:51] LABS: Albumin 4.6 g/dL (3.9-5); Calcium 9.1 mg/dL (8.4-10.2)
[2021-07-12 15:06] LABS: Basophils % (Manual) 1.5 % (0.0-1.8); Eosinophils % (Manual) 0.5 % (0.0-4.3); Total Cells Counted 200
[2021-07-12 15:07] LABS: Anisocytosis 1+; Platelet Estimate Consistent w Auto; Smudge Cells Few
[2021-07-12 15:09] LABS: Bilirubin,Urine NEG (Negative); Blood,Urine MOD (Negative); Color,Urine Yellow (Yellow); Hyaline Casts,Urine 1 /LPF; Mucus,Urine FEW /HPF; Urobilinogen,Urine < 2.0 mg/dL (<2.0)
[2021-07-12 15:24] LABS: Uric Acid 5.7 mg/dL (3.5-7.6)
[2021-07-12 16:44] VITALS: BP 123/64
--- NOTE | 2021-07-13 09:03 | Electrocardiograph Report ---
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
== END 2021-07-12 16:44 | disposition home or self-care (01) ==
LOC: ED 12:13
DX: I47.1 Supraventricular tachycardia (principal); M25.571 Pain in right ankle and joints of right foot; I10 Essential (primary) hypertension; M19.90 Unspecified osteoarthritis, unspecified site; G43.909 Migraine, unspecified, not intractable, without status migrainosus; Z90.710 Acquired absence of both cervix and uterus; Z79.899 Other long term (current) drug therapy; Z88.7 Allergy status to serum and vaccine; Z88.8 Allergy status to other drugs, medicaments and biological substances; Z68.30 Body mass index [BMI] 30.0-30.9, adult
CPT/HCPCS: 36415; 71045; 73610; 80053; 81001; 82550; 83735; 84100; 84550; 85007; 85025; 85610; 85730; 93005; 93010; 93971; 96374; 96375; 99284; J2270; J3490; J7120; 96361

== ENCOUNTER 2021-07-20 11:32 | Outpatient (CLI) | payer BC ==
[2021-07-20 12:31] LABS: Alanine Aminotransferase 20 units/L (7-56); Albumin 4.7 g/dL (3.9-5); BUN/Creatinine Ratio 23; Blood Urea Nitrogen 23 mg/dL (7-17); Calcium 8.9 mg/dL (8.4-10.2); Hemolysis Index 1
[2021-07-20 12:34] LABS: Hematocrit 35.8 % (30.3-42.9); Hemoglobin 11.2 gm/dl (10.1-14.3); Mean Corpuscular HGB Conc 31 % (30-34); Mean Corpuscular Volume 90 fl (79-97); Platelet Count 185 K/mm3 (140-440); Red Blood Count 3.98 M/mm3 (3.65-5.03); Red Cell Distribution Width 13.9 % (13.2-15.2)
[2021-07-20 12:51] LABS: Erythrocyte Sedimentation Rate 16 mm/Hr (0-20)
== END 2021-07-20 11:33 | disposition home or self-care (01) ==
LOC: LAB 11:32
PROVIDERS: ATTEND Internal Medicine Hematology & Oncology
DX: C91.10 Chronic lymphocytic leukemia of B-cell type not having achieved remission (principal)
CPT/HCPCS: 36415; 80053; 83615; 85027; 85652

== ENCOUNTER 2021-08-04 08:07 | Outpatient (CLI) | payer BC ==
--- NOTE | 2021-08-04 10:05 | Treadmill Report ---
DATE OF SERVICE: 08/04/2021 TREADMILL STRESS TEST REFERRING PHYSICIAN: Vincent Varma MD PROTOCOL: The patient was brought in to the treadmill lab in a postabsorptive state. Resting blood pressure was 120/72. Baseline heart rate of 72. Baseline EKG is unremarkable. The patient exercised for a total of 3 minutes and 20 seconds on a standard Jesus protocol treadmill to achieve a peak heart rate of 120. She did not achieve anywhere close to her 85% goal. She developed knee pain and some shortness of breath, thus the test was stopped. No EKG changes, chest pain or arrhythmia. The patient was recovered without any issue. No further symptoms. CONCLUSIONS: Nondiagnostic treadmill stress test due to failure to achieve target heart rate. No diagnostic ST changes, arrhythmias, or chest pain during this brief test. Recommend chemical stress test with nuclear perfusion imaging for proper ischemic evaluation. TID: [id number] RECEIPT: [id number] VIK/BRIAN
--- NOTE | 2021-08-04 10:50 | Treadmill Report ---
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
== END 2021-08-04 08:08 | disposition home or self-care (01) ==
LOC: CARD 08:07
PROVIDERS: ATTEND Internal Medicine
DX: I47.1 Supraventricular tachycardia (principal); C91.10 Chronic lymphocytic leukemia of B-cell type not having achieved remission; M25.562 Pain in left knee
CPT/HCPCS: 93017

== ENCOUNTER 2021-08-06 08:39 | Outpatient (CLI) | payer BC ==
[2021-08-06] MEDS ORDERED: REGADENOSON 0.4 MG/5 ML INJ IV ONE (11:03)
[2021-08-06 11:44] VITALS: BP 119/61
--- NOTE | 2021-08-06 19:04 | Treadmill Report ---
DATE OF SERVICE: 08/06/2021 NUCLEAR PERFUSION SCAN REFERRING PHYSICIAN: Vincent Varma MD PROTOCOL: The patient was assessed in postoperative state, given 10 mCi of technetium at rest. The patient had rest imaging. The patient underwent Lexiscan stress test per standard protocol. At peak stress, the patient given 26 mCi technetium. Shortly thereafter, the patient had stress imaging. Raw imaging reveals mild GI artifact, no significant motion artifact. SPECT imaging examined carefully in horizontal long axis, vertical long axis and short axis views. Technically difficult study due to breast attenuation GI artifact and body habitus, but grossly no evidence of a significant fixed or reversible perfusion defect suggestive of prior infarction or ischemia. Gated wall motion reveals normal systolic thickening, calculated ejection fraction of 74%. No TID. CONCLUSIONS: 1. Technically difficult study due to body habitus and breast attenuation, but grossly probably normal without evidence of a significant degree of ischemia or prior infarction. 2. Normal left ventricular systolic performance without evidence of transient ischemic dilatation or stress-induced segmental wall motion abnormalities. TID: [id number] RECEIPT: [id number] SBM/DANIS
== END 2021-08-06 08:40 | disposition home or self-care (01) ==
LOC: CARD 08:39 → CATHLABREC 08:39 → CARD 08:40 → EDSTATUS 09:00
PROVIDERS: ATTEND Internal Medicine
DX: I47.1 Supraventricular tachycardia (principal); R94.30 Abnormal result of cardiovascular function study, unspecified
CPT/HCPCS: 78452; 93017; A9502; J2785

== ENCOUNTER 2021-08-18 11:27 | Outpatient (CLI) | payer BC ==
[2021-08-18 12:17] LABS: Hematocrit 34.9 % (30.3-42.9); Mean Corpuscular HGB Conc 31 % (30-34); Mean Corpuscular Volume 90 fl (79-97); Platelet Count 182 K/mm3 (140-440); Red Blood Count 3.87 M/mm3 (3.65-5.03); Red Cell Distribution Width 14.2 % (13.2-15.2)
[2021-08-18 12:27] LABS: Alanine Aminotransferase 29 units/L (7-56); Albumin 4.7 g/dL (3.9-5); BUN/Creatinine Ratio 29; Blood Urea Nitrogen 26 mg/dL (7-17); Calcium 9.3 mg/dL (8.4-10.2); Hemolysis Index 1
[2021-08-18 12:43] LABS: Erythrocyte Sedimentation Rate 19 mm/Hr (0-20)
== END 2021-08-18 11:28 | disposition home or self-care (01) ==
LOC: LAB 11:27
PROVIDERS: ATTEND Internal Medicine Hematology & Oncology
DX: Z01.812 Encounter for preprocedural laboratory examination (principal)
CPT/HCPCS: 36415; 80053; 83615; 85027; 85652

== ENCOUNTER 2021-09-15 11:36 | Outpatient (CLI) | payer BC ==
[2021-09-15 12:24] LABS: Hematocrit 35.8 % (30.3-42.9); Hemoglobin 11.3 gm/dl (10.1-14.3); Mean Corpuscular HGB Conc 32 % (30-34); Mean Corpuscular Volume 89 fl (79-97); Platelet Count 210 K/mm3 (140-440); Red Blood Count 4.03 M/mm3 (3.65-5.03)
[2021-09-15 12:42] LABS: Alanine Aminotransferase 30 units/L (7-56); Albumin 4.7 g/dL (3.9-5); BUN/Creatinine Ratio 16; Blood Urea Nitrogen 16 mg/dL (7-17); Calcium 9.8 mg/dL (8.4-10.2); Hemolysis Index 4
[2021-09-15 12:48] LABS: Erythrocyte Sedimentation Rate 16 mm/Hr (0-20)
[2021-09-15 14:10] LABS: Basophils % (Manual) 0 % (0.0-1.8); Eosinophils % (Manual) 0 % (0.0-4.3); Platelet Estimate Consistent w Auto; RBC Morphology Normal; Total Cells Counted 100
== END 2021-09-15 11:37 | disposition home or self-care (01) ==
LOC: LAB 11:36
PROVIDERS: ATTEND Internal Medicine Hematology & Oncology
DX: C91.00 Acute lymphoblastic leukemia not having achieved remission (principal)
CPT/HCPCS: 36415; 80053; 83615; 85007; 85025; 85652

== ENCOUNTER 2021-11-08 10:51 | Outpatient (CLI) | payer BC ==
[2021-11-08 11:41] LABS: Hematocrit 34.1 % (30.3-42.9); Hemoglobin 10.6 gm/dl (10.1-14.3); Mean Corpuscular HGB Conc 31 % (30-34); Mean Corpuscular Volume 90 fl (79-97); Platelet Count 185 K/mm3 (140-440); Red Cell Distribution Width 14.2 % (13.2-15.2)
[2021-11-08 12:02] LABS: Alanine Aminotransferase 35 units/L (7-56); Albumin 4.8 g/dL (3.9-5); BUN/Creatinine Ratio 29; Blood Urea Nitrogen 23 mg/dL (7-17); Calcium 9.3 mg/dL (8.4-10.2); Hemolysis Index 2
[2021-11-08 12:51] LABS: Erythrocyte Sedimentation Rate 12 mm/Hr (0-20)
== END 2021-11-08 10:52 | disposition home or self-care (01) ==
LOC: LAB 10:51
PROVIDERS: ATTEND Internal Medicine
DX: C91.10 Chronic lymphocytic leukemia of B-cell type not having achieved remission (principal)
CPT/HCPCS: 36415; 80053; 83615; 85027; 85652

== ENCOUNTER 2021-12-09 09:46 | Outpatient (CLI) | payer BC ==
[2021-12-09] MEDS ORDERED: REGADENOSON 0.4 MG/5 ML INJ IV ONE (10:28)
[2021-12-09 12:56] VITALS: BP 179/96
--- NOTE | 2021-12-10 11:11 | Nuclear Medicine Report ---
APPROVED REPORT Exam: Nuclear Stress Test Indication: Chest pain Patient Location: OUTPATIENT Room #: STRESS LAB 1 Ht: 5 ft 5 in Wt: 213 lbs BSA: 2.03 m2 BMI: 35.44 Rhythm: Sinus Bradycardia Stress Test Details Stress Test: Pharmacologic stress testing performed using 0.4 mg of regadenoson per 5 mL given IV over 10 seconds. Reason for pharmacologic stress test: physical limitation. HR Resting HR: 57 bpm Max HR Achieved: 91 bpm Max Heart Rate (APMHR): 158 bpm Target HR (85% APMHR): 134 bpm % of APMHR: 57 Recovery HR: 85 bpm BP Resting BP: 158/77 mmHg Max BP: 179/96 mmHg Recovery BP: 168/83 mmHg ECG Resting ECG: Sinus Bradycardia,poor R wave progression noted. Stress ECG: Sinus Rhythm,non specific T wave changesnoted. ST Change: None Arrhythmia: None Recovery ECG: Sinus Rhythm Recovery ST Change: None Recovery Arrhythmia: None Clinical Reason for Termination: Completed protocol Stress Symptoms: BODY ACHE, HIP PAIN, Nausea Stress ECG Conclusion Negative for ischemia. No arrhythmia noted. NM EXAM: Myocardial Perfusion REST/STRESS Imaging Protocol: Rest Tc-99m/Stress Tc-99m 1 day Resting Data Rest SPECT myocardial perfusion imaging was performed in supine position 45 minutes following the intravenous injection of 10 mCi of Tc-99m Myoview. Time of rest injection: 10 Date: 12/09/2021 Pharmacologic Stress Pharmacologic stress test was performed by injecting Regadenoson 0.4 mg IV push followed by the intravenous injection of 28 mCi of Tc-99m Myoview. Time of stress injection: 1145 Date: 12/09/2021 Gated Stress SPECT was performed 30 minutes after stress injection. The images were gated to evaluate regional wall motion and calculate left ventricular ejection fraction. Study Data TID = 1.13. Perfusion Wall Motion Normal wall motion noted with calculated LVEF of 76% post vasodilation. Nuclear Conclusion ECG Findings: negative for ischemia Clinical Findings: negative for ischemia Nuclear Findings: negative for ischemia Exercise Capacity: not assessed Left Ventricular Function: normal Risk Study: low Normal study. No scintigraphic evidence for myocardial ischemia or scar. Conclusion Negative for ischemia. No arrhythmia noted.
== END 2021-12-09 09:47 | disposition home or self-care (01) ==
LOC: CARD 09:46
PROVIDERS: ATTEND Internal Medicine Cardiovascular Disease
DX: I47.1 Supraventricular tachycardia (principal); R07.9 Chest pain, unspecified; Z98.890 Other specified postprocedural states
CPT/HCPCS: 78452; 93017; A9502; J2785

== ENCOUNTER 2021-12-13 10:45 | Outpatient (CLI) | payer BC ==
[2021-12-13 12:20] LABS: Hematocrit 36.3 % (30.3-42.9); Hemoglobin 11.5 gm/dl (10.1-14.3); Mean Corpuscular HGB Conc 32 % (30-34); Mean Corpuscular Volume 90 fl (79-97); Platelet Count 188 K/mm3 (140-440); Red Blood Count 4.06 M/mm3 (3.65-5.03); Red Cell Distribution Width 13.6 % (13.2-15.2)
[2021-12-13 12:30] LABS: Alanine Aminotransferase 35 units/L (7-56); Albumin 4.8 g/dL (3.9-5); BUN/Creatinine Ratio 23; Blood Urea Nitrogen 21 mg/dL (7-17); Calcium 9.9 mg/dL (8.4-10.2); Hemolysis Index 1; LDL Cholesterol,Direct 99 mg/dL (50-130)
[2021-12-13 12:47] LABS: Erythrocyte Sedimentation Rate 19 mm/Hr (0-20)
== END 2021-12-13 10:46 | disposition home or self-care (01) ==
LOC: LAB 10:45
PROVIDERS: ATTEND Internal Medicine Hematology & Oncology
DX: C91.10 Chronic lymphocytic leukemia of B-cell type not having achieved remission (principal)
CPT/HCPCS: 36415; 80053; 83721; 83735; 85027; 85652

== ENCOUNTER 2022-01-18 10:11 | Outpatient (CLI) | payer BC ==
[2022-01-18 11:32] LABS: Hematocrit 33.6 % (30.3-42.9); Hemoglobin 10.5 gm/dl (10.1-14.3); Mean Corpuscular HGB Conc 31 % (30-34); Mean Corpuscular Volume 91 fl (79-97); Platelet Count 200 K/mm3 (140-440); Red Blood Count 3.71 M/mm3 (3.65-5.03); Red Cell Distribution Width 14.7 % (13.2-15.2)
[2022-01-18 11:49] LABS: Alanine Aminotransferase 33 units/L (7-56); Albumin 4.6 g/dL (3.9-5); BUN/Creatinine Ratio 29; Blood Urea Nitrogen 26 mg/dL (7-17); Calcium 10.1 mg/dL (8.4-10.2); Hemolysis Index 1
[2022-01-18 11:58] LABS: Erythrocyte Sedimentation Rate 33 mm/Hr (0-20)
== END 2022-01-18 10:12 | disposition home or self-care (01) ==
LOC: LAB 10:11
PROVIDERS: ATTEND Internal Medicine Hematology & Oncology
DX: C91.10 Chronic lymphocytic leukemia of B-cell type not having achieved remission (principal)
CPT/HCPCS: 36415; 80053; 83615; 83735; 85027; 85652